=== PATIENT | female | born 1960 | race Caucasian/White ===

== ENCOUNTER → 2024-10-01 | Outpatient (CLI) | payer MEDICARE, MEDICAID, SELFPAY ==
[2024-10-01 12:57] LABS: Collection Type, Urine Clean Catch
[2024-10-01 13:12] LABS: Basophils % (Auto) 0 % (0-2.5); Eosinophils % (Auto) 0 % (0-10); Hematocrit 39.8 % (36.0-46.0); Hemoglobin 13.1 g/dL (12.0-16.0); Immature Granulocytes % (Auto) 1 % (0-0); Immature Granulocytes Auto 0.04 Thou/mm3 (0.00-0.00); Lymphocytes # (Auto) 1.4 Thou/mm3 (1.0-4.8); Lymphocytes % (Auto) 30 % (10-50); Mean Corpuscular HGB Conc 32.9 g/dl (31.0-37.0); Mean Corpuscular Hemoglobin 31.6 pg (25.0-35.0); Mean Corpuscular Volume 96 fL (80-100); Monocytes # (Auto) 1.2 Thou/mm3 (0.0-0.8); Monocytes % (Auto) 25 % (0-12); Neutrophils # (Auto) 2.1 Thou/mm3 (1.8-7.7); Neutrophils % (Auto) 43 % (37-80); Nucleated Red Blood Cell % 0 /100 WBC (0); Platelet Count 217 Thou/mm3 (140-440); Red Blood Count 4.15 Miln/mm3 (4.00-5.20); White Blood Count 4.8 Thou/mm3 (3.6-11.0)
[2024-10-01 13:24] LABS: Glucose Estimated Average 97 mg/dL (80-131)
[2024-10-01 13:27] LABS: Bacteria,Urine 1+; Bilirubin,Urine Negative (Negative); Blood,Urine Negative (Negative); Color,Urine Yellow (Lt Yel-Yel); Glucose, Urine Negative (Negative); Hyaline Casts,Urine < 1 /hpf (0-1); Ketones,Urine Negative (Negative); Leukocyte Esterase,Urine Positive (Negative); Nitrite,Urine Negative (Negative); PH,Urine 5.5 (5.0-7.0); Protein,Urine 1+ (Neg - Trace); RBC,Urine 4 /hpf (0-3); Specific Gravity,Urine 1.036 (1.001-1.035); Squamous Epithelial Cell,Urine 36 /hpf (0-5); WBC,Urine 8 /hpf (0-5)
[2024-10-01 13:30] LABS: Alanine Aminotransferase 35 U/L (10-49); Albumin, Serum 5.2 gm/dL (3.4-4.8); Albumin/Globulin Ratio 2.1 (1.2-2.2); Alkaline Phosphatase 112 U/L (46-116); Anion Gap 8 (7-16); Aspartate Amino Transferase 42 U/L (0-34); BUN/Creatinine Ratio 18 Ratio (12-20); Bilirubin,Total 0.8 mg/dL (0.3-1.2); Blood Urea Nitrogen 18 mg/dL (9-23); Calcium 10.2 mg/dL (8.3-10.6); Calcium (Corrected) 10.2 mg/dL (8.5-10.1); Carbon Dioxide 25.9 mMol/L (20.0-31.0); Cardiac Risk Estimate 2.9 RATIO (3.7-5.6); Chloride 103 mMol/L (98-107); Cholesterol 219 mg/dL (132-200); Globulin 2.5 gm/dL (2.3-3.5); Glucose 103 mg/dL (74-106); HDL Cholesterol 75 mg/dL (40-60); LDL Cholesterol,Calculated 79 mg/dL (0-130); Osmolality,Calculated 275 (275-295); Potassium 4.4 mMol/L (3.4-5.1); Sodium 137 mMol/L (136-145); Thyroid Stimulating Hormone 1.14 uIU/mL (0.55-4.78); Total Protein 7.7 gm/dL (5.7-8.2); Triglycerides 325 mg/dL (30-150); eGFR > 60 See Note
[2024-10-01 13:50] LABS: Clarity,Urine Hazy (Clear/Hazy)
== END | disposition home or self-care (01) ==
PROVIDERS: PCP Student in an Organized Health Care Education/Training Program; Referring Provider Student in an Organized Health Care Education/Training Program; Visit Provider Student in an Organized Health Care Education/Training Program
DX: Z00.00 Encounter for general adult medical examination without abnormal findings (principal); N39.0 Urinary tract infection, site not specified
CPT/HCPCS: 36415; 80053; 80061; 81001; 83036; 84443; 85025; 87086

== ENCOUNTER 2024-11-18 13:25 | Outpatient (AMB) | payer MEDICARE, MEDICAID, SELFPAY ==
[2024-11-18 13:42] VITALS: BP 173/90; PULSE 110; RESP 18; TEMP 36.6; O2SAT 97; BMI 34.0
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
== END 2024-11-18 14:17 | disposition home or self-care (01) ==
LOC: HODAHC 13:25
PROVIDERS: PCP Student in an Organized Health Care Education/Training Program; Referring Provider Student in an Organized Health Care Education/Training Program; Supervising Provider Internal Medicine
DX: N39.0 Urinary tract infection, site not specified (principal); I10 Essential (primary) hypertension; Z86.73 Personal history of transient ischemic attack (TIA), and cerebral infarction without residual deficits
CPT/HCPCS: 99213; G0463

== ENCOUNTER 2025-02-10 13:05 | Outpatient (AMB) | payer MEDICARE, MEDICAID, SELFPAY ==
[2025-02-10 13:32] VITALS: BP 176/78; PULSE 107; RESP 16; TEMP 36.2; O2SAT 98; BMI 33.7
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
== END 2025-02-10 14:21 | disposition home or self-care (01) ==
PROVIDERS: Supervising Provider Internal Medicine
DX: I10 Essential (primary) hypertension (principal); E78.00 Pure hypercholesterolemia, unspecified; Z86.73 Personal history of transient ischemic attack (TIA), and cerebral infarction without residual deficits
CPT/HCPCS: 99213; G0463

== ENCOUNTER → 2025-03-03 | Outpatient (CLI) | payer MEDICARE, MEDICAID, SELFPAY ==
[2025-03-03 11:41] LABS: Anion Gap 10 (7-16); BUN/Creatinine Ratio 19 Ratio (12-20); Blood Urea Nitrogen 17 mg/dL (9-23); Calcium 9.6 mg/dL (8.3-10.6); Chloride 112 mMol/L (98-107); Creatinine (Component) 0.9 mg/dL (0.6-1.3); Glucose 83 mg/dL (74-106); Osmolality,Calculated 285 (275-295); Potassium 4.2 mMol/L (3.4-5.1); Sodium 143 mMol/L (136-145); eGFR > 60 See Note
== END | disposition home or self-care (01) ==
DX: I10 Essential (primary) hypertension (principal)
CPT/HCPCS: 36415; 80048

== ENCOUNTER 2025-03-10 14:12 | Outpatient (AMB) | payer MEDICARE, MEDICAID, SELFPAY ==
[2025-03-10 13:23] VITALS: BP 113/62; PULSE 79; RESP 18; TEMP 36.4; O2SAT 97
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
== END 2025-03-10 15:13 | disposition home or self-care (01) ==
LOC: HODAHC 14:12
PROVIDERS: Supervising Provider Internal Medicine
DX: I10 Essential (primary) hypertension (principal); E78.00 Pure hypercholesterolemia, unspecified; I69.354 Hemiplegia and hemiparesis following cerebral infarction affecting left non-dominant side; R92.323 Mammographic fibroglandular density, bilateral breasts; Z87.891 Personal history of nicotine dependence; Z79.82 Long term (current) use of aspirin
CPT/HCPCS: 99213; G0463

== ENCOUNTER 2025-06-04 10:57 | Outpatient (AMB) | payer MEDICARE, MEDICAID, SELFPAY ==
[2025-06-04 11:11] VITALS: BP 175/71; PULSE 99; RESP 18; TEMP 36.6; O2SAT 98
--- NOTE | 2025-06-04 11:11 | PD.RESCLINIC ---
Vital Signs 06/04/25 11:11 Height 1.63 m Height Method Stated Weight Measurement Method Wheelchair BP 175/71 H Blood Pressure Source Automatic Cuff Blood Pressure Location Right Upper Arm Position Sitting Respiration 18 Pulse 99 Pulse Source Monitor Temp 97.9 F Temp Source Temporal Artery Scan Pulse Oximetry (%) 98 Oxygen Delivery Method Room Air Allergies/Meds Allergies & Medications Allergies No Known Allergies Allergy (Verified 06/04/25 11:12) Medication Reconciliation aspirin 81 mg tablet,delayed release 81 mg PO QDAY PRN cva 30 days #30 tabs 06/05/23 [Rx Confirmed 06/04/25] miscellaneous medical supply (Blood Pressure Cuff) #1 ea 06/05/23 [Rx Confirmed 06/04/25] nitrofurantoin monohydrate/macrocrystals 100 mg capsule (Macrobid) 100 mg PO Q12H #14 caps 11/18/24 [Rx Confirmed 06/04/25] atorvastatin 80 mg tablet 80 mg PO QDAY 90 days #90 tabs 01/26/25 [Rx Confirmed 06/04/25] gabapentin 100 mg capsule 100 mg PO TID PRN nerve pain #90 caps 02/10/25 [Rx Confirmed 06/04/25] losartan 50 mg tablet 50 mg PO QDAY 1 month #30 tabs 04/19/25 [Rx Confirmed 06/04/25] metoprolol succinate 100 mg tablet,extended release 24 hr 100 mg PO QDAY 1 month #30 tabs 06/04/25 [Rx] ondansetron 4 mg disintegrating tablet 4 mg PO Q8H PRN nausea and vomiting #30 tabs 06/04/25 [Rx] MA Intake Visit Data Collection New Patient or Established: Established Patient (seen at [facility] within 3 years) Seen by Clinical Staff ONLY (RN/MA): No Pain Present Currently: No Pain scale:: 0 Pain Scale Used: [place]/Numerical Facilities Locator Required: No PCP or OBGYN visit in last 3 months: No Hx Now: No Do You Feel Safe at Home: Yes Authorities Contacted: N/A Smoking Status Smoking Status: Former smoker Immunization / Flu Flu Vaccine in the Last 12 Months: No Flu Vaccine Exclusion Criteria: No Exclusion Criteria Past Medical History Past Medical History NEUROLOGIC: Positive Cerebrovascular Accident CARDIAC: Positive Hypercholesterolemia and Hypertension; Negative Congestive Heart Failure RESPIRATORY: Negative Chronic Obstructive Pulmonary Disease (COPD) GENITOURINARY: Negative Renal Disease ENDOCRINE: Negative Diabetes Mellitus Type 1 or Diabetes Mellitus Type 2 Social History SMOKING STATUS: Smoking status: Former smoker ALCOHOL FREQUENCY: Alcohol Intake Frequency: holidays/special occasions only HOUSING: Housing: House LIVES WITH: Lives With: Spouse Patient Citlaly Sawyer Social History Living Situation History Housing: House Housing Other:: pt lives with Tobacco History Smoking Status: Former smoker Alcohol History Alcohol Intake Frequency: holidays/special occasions only Substance Use History Substance Use: MARIJUANA Domestic Abuse History Do You Feel Safe at Home: Yes Review of Systems Report any current symptoms Only answer those that you have currently: Past Medical History Past Medical History Have you ever been diagnosed with any of the following: Neurological Problems Cerebrovascular Accident (CVA): Yes Cardiology Problems Hypercholesterolemia: Yes Congestive Heart Failure: No Hypertension: Yes Respiratory Problems Chronic Obstructive Pulmonary Disease (COPD): No Genital/Urinary Problems Renal Disease: No Endocrine Problems Diabetes Mellitus Type 1: No Diabetes Mellitus Type 2: No History of Present Illness HPI Narrative Aimee Manzano is a pleasant 63-year-old female with a past medical history of hypertension, hypercholesterolemia, and 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 During previous visit metoprolol XL increased to 100 mg and losartan increased to 50 mg as BP was 176/78 and was confirmed with manual BP cuff and heart rate was 107. Today, blood pressure is again elevated at 175/71 but brings in a blood pressure log showing readings that average around 110s-130s/60s-70s and thus will continue her current blood pressure regimen. Otherwise she denies any lightheadedness or near syncope. 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 Low-dose CT chest and mammogram were ordered during previous visit on 03/10/2025 but states they were not able to be done. Will reorder imaging and schedule follow-up in another three months after imaging is done. States that she sent in stool sample for Cologuard and will find results for that. 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 BMP after increase showed stable creatinine 0.9, K 4.2. Plan: ? Metoprolol succinate 100 mg daily ? Losartan 50 mg daily (2) CVA, old, hemiparesis: Status: Chronic Assessment & Plan: Patient states that she has made some success regarding her contractures with home exercises. On gabapentin, taking two per day instead of three due to feeling nauseous, dizzy. Plan: ? Continue gabapentin 100 mg twice a day as needed ? Continue aspirin 81 mg daily ? Continue atorvastatin 80 mg ? Referral for PT sent (3) Mammographic fibroglandular density, bilateral breasts: Status: Acute Assessment & Plan: Last mammogram on 02/08/2021 recommended 1 year follow-up given findings of scattered areas of fibroglandular density and multiple bilateral benign calcifications with BI-RADS Category 2, so will order mammogram. Plan: ? Mammogram ordered 03/10 but unable to be done so reordered 06/04 (4) Stopped smoking with greater than 30 pack year history: Status: Acute Assessment & Plan: Endorses [id number]-fdsl smoking history and quit approximately 10 years ago but currently uses 0 nicotine vape, so we will order low-dose CT chest for screening. Plan: ? Low-dose CT lung screening ordered 03/10 but unable to be done so reordered 06/04 (5) Colon cancer screening: Status: Acute Assessment & Plan: Patient has not yet had a colonoscopy but agrees to screening. Stool sample sent per patient and will need to find results. Plan: ? Cologuard order placed 03/10, will need to follow-up results Orders: Orders CT lung low-dose screening wo 06/04/25 Z87.891 - Personal history of nicotine dependence [facility] CAD screening BI 06/04/25 R92.323 - Mammographic fibroglandular density, bilateral breasts Referrals Physical Therapy - Referral I69.398 - Other sequelae of cerebral infarction, R25.2 - Cramp and spasm Additional Assessment Attending note: I, Juan Hamilton MD, attest that I was physically present for the vazquez portions of the service and evaluated the patient with the resident and I reviewed and discussed the case with the resident and agree with the resident's findings and plans of care as documented above. Juan Hamilton MD Physician Billing Established Patient Established Patient: E/M Level 3-CPT 65389 Office Procedures [facility] Level of Care Nursing/Assessment Patient Status: Established Patient Nursing Assessment/Reassessment: Medication Reconciliation, Update PMH in EMR and Vital Signs Coordination of Care: Complex Care and Chronic Disease 1-5, Consent,records obtained, informed consent, Education Simp Pt/Fam and Staff clarify orders Established Patient Charge Established Patient Point Assignment: 85 Established Patient Point Charge: EP Level 3 (80-115)
== END 2025-06-04 12:05 | disposition home or self-care (01) ==
LOC: HODAHC 10:57
PROVIDERS: Supervising Provider Internal Medicine
DX: I69.354 Hemiplegia and hemiparesis following cerebral infarction affecting left non-dominant side (principal); I10 Essential (primary) hypertension; E78.00 Pure hypercholesterolemia, unspecified; F17.290 Nicotine dependence, other tobacco product, uncomplicated; R92.323 Mammographic fibroglandular density, bilateral breasts
CPT/HCPCS: 99213; G0463

== ENCOUNTER 2025-07-06 09:13 | Inpatient (IN) | payer MEDICARE, MEDICAID, SELFPAY ==
[2025-07-06] VITALS (12 sets, daily range): BP systolic 148–182; BP diastolic 80–95; PULSE 102–133; RESP 12–98; TEMP 37.1; O2SAT 97–98
--- NOTE | 2025-07-06 09:21 | EKG_ITS ---
[facility] Test Date: 2025-07-06 Pat Name: BISHNU JOLLY Department: Room: - Gender: Female Craft Artist: : [id number] Requested By: Nikky Stock Order Number: [id number] Reading MD: Nikky Stock Measurements Intervals [place] Rate: 122 P: 47 OK: 132 QRS: 5 QRSD: 75 T: 30 QT: 309 QTc: 442 Interpretive Statements SINUS TACHYCARDIA ABNORMAL RHYTHM ECG Compared to ECG 02/27/2023 04:46:30 Myocardial infarct finding no longer present /store/S0/[id number]
--- NOTE | 2025-07-06 09:22 | EDNOTE_ITS ---
ED Chest Pain RME/HPI General Chief Complaint: Chest Pain Stated Complaint: CHEST PAIN Time Seen by Provider: 07/06/25 09:21 Source: patient and family Arrival date/time: 07/06/25 09:13 Mode of arrival: wheelchair Limitations: no limitations RME / HPI RME / HPI narrative: Patient is a 64-year-old female seen emerged primary concerns for chest pain after having received the news that her had . Her is a patient that came to the emergency department earlier today in cardiac arrest, unfortunately the patient . I was sharing the news with the patient and then started having chest pain feeling unwell. I advised her to get checked in so that I can evaluate her. Related Data Home Medications ?Medication ?Instructions ?Recorded ?Confirmed omeprazole 20 mg tablet,delayed 20 mg PO QDAY 07/06/25 07/16/25 release Previous Rx's ?Medication ?Instructions ?Recorded miscellaneous medical supply #1 ea 06/05/23 (Blood Pressure Cuff) atorvastatin 80 mg tablet 80 mg PO QDAY 90 days #90 ta bs 01/26/25 losartan 50 mg tablet 50 mg PO QDAY 1 month #30 ta bs 06/17/25 aspirin 81 mg tablet,delayed 81 mg PO QDAY cva 30 days #30 tabs 07/08/25 release carvedilol 12.5 mg tablet 12.5 mg PO BIDWM 30 days #60 tabs 07/08/25 gabapentin 100 mg capsule 100 mg PO TID PRN neuropathi c pain 07/08/25 30 days #90 caps ondansetron 4 mg disintegrating 4 mg PO Q8H PRN nausea and 07/20/25 tablet vomiting #30 tabs Allergies Allergy/AdvReac Type Severity Reaction Status Date / Time No Known Allergies Allergy Verified 07/16/25 11:19 Review of Systems Review of Systems Systems Reviewed: All systems reviewed, normal except as documented Past Medical History Past Medical History NEUROLOGIC: Positive Cerebrovascular Accident CARDIAC: Positive Hypercholesterolemia and Hypertension RESPIRATORY: Negative Chronic Obstructive Pulmonary Disease (COPD) GENITOURINARY: Negative Renal Disease ENDOCRINE: Negative Diabetes Mellitus Type 1 or Diabetes Mellitus Type 2 Social History SMOKING STATUS: Former smoker ED Exam General Limitations: Present no limitations General appearance: Present alert and in no apparent distress Head Head exam: Present atraumatic Eye Eye exam: Present normal appearance ENT ENT exam: Present normal exam Neck Neck exam: Present normal inspection Chest Chest inspection: Present normal inspection Respiratory Respiratory exam: Present normal lung sounds bilaterally; Absent respiratory distress Cardiovascular Cardiovascular exam: Present normal rhythm and tachycardia Abdominal Exam Abdominal exam: Present soft; Absent distention, tenderness, guarding or rebound Extremities Exam Extremities exam: Present normal inspection Back Exam Back exam: Present normal inspection Neurological Exam Neurological exam: Present alert, oriented X3 and other (ambulating at her baseline with walker, baseline unilateral weakness from prior stroke ) Skin Skin exam: Present warm and dry Course Quality Measures none Orders Category Date Time Status EKG (ED ONLY) *Do not use* NOW Care 07/06/25 09:21 Completed CA echo doppler complete Stat Exams 07/06/25 13:[address] head/brain wo con Stat Exams 07/06/25 16:16 Completed CXR [XR chest 1V] Stat Exams 07/06/25 09:21 Completed EKG (ED Only) Stat Exams 07/06/25 09:21 Draft CBC Stat Lab 07/06/25 09:54 Completed CMP [Comprehensive Metabolic Panel] Stat Lab 07/06/25 09:54 Completed Troponin I Stat Lab 07/06/25 09:54 Completed Troponin I Stat Lab 07/06/25 15:34 Completed Acetaminophen Tab [Tylenol Tab] Med 07/06/25 13:43 Discontinued 650 mg PO X1 ONE Aspirin Chew Med 07/06/25 10:11 Discontinued 81 mg PO X1 ONE Labetalol IV [Trandate IV] Med 07/06/25 16:15 Discontinued 10 mg IVP X1 ONE Losartan [Cozaar] Med 07/06/25 13:43 Discontinued 50 mg PO X1 ONE Morphine Inj Med 07/06/25 15:53 Discontinued 2 mg IVP X1 ONE Vital Signs Vital signs: Vital Signs Temperature 98.7 F 07/06/25 10:06 Pulse Rate 130 H 07/06/25 10:06 Respiratory Rate 20 07/06/25 10:06 Blood Pressure 182/89 H 07/06/25 10:06 Pulse Oximetry (%) 98 07/06/25 10:06 Oxygen Delivery Method Room Air 07/06/25 10:06 Pulse ox is 98% on room air which is adequate. Chest Pain MDM Narrative MDM Narrative:: Patient is a 64-year-old female seen emerged from concerns for chest pain. Vital signs and exam as listed. Concern for ACS arrhythmia electrolyte abnormality among others. Ordered labs EKG chest x-ray. 1328: I spoke with apartment leasing manager Dr. Trujillo. Discussed patients PMHx, HPI, ED course, exam findings, labs, and radiology results. States he will come evaluate the patient. 1340: Information Security Specialist Dr. Trujillo evaluated the patient and recommends repeating troponin. 1630: Resident Dr. Hagen working with apartment leasing manager Dr. Trujillo made aware of delta trop results and evaluated patient in the ED. Concern for takasubo's cardiomyopathy. Recommends admission. 1640: I spoke with hospitalist team C regarding admission. Patient data External records reviewed:: [facility] previous records (I reviewed admission from 02/26/2023 through 03/01/2023 ) Clinical information provided by:: patient Social determinants that could affect healthcare access:: none Patient has the following chronic illnesses:: CVA, hypertension, hyperlipidemia How is presenting disease/condition affected by chronic disease/condition?: exacerbated by Evaluation data The following diagnostics were reviewed and interpreted by me:: lab results, radiology exam(s) and EKG tracing(s) Lab and/or radiology exams considered but not ordered:: None Interpretation Summary: Ordering Physician: Nikky Carey MD Date of Service: 07/06/25 Procedure(s): XR chest 1V Accession Number(s): [id number] cc: Michael Mancia MD; Nikky Carey MD~ Examination: AP chest single view TECHNIQUE: AP upright portable chest single view. Date and time: July 06, 2025, 0931 hours, comparison February 26, 2023. INDICATIONS: Chest pain today. FINDINGS: Mild atelectasis left lower lobe. Normal heart size. No lobar pneumonia or pulmonary edema. IMPRESSION: No lobar pneumonia or pulmonary edema. Dictated By: Michael Mancia MD Signed By: <Electronically signed by Michael Mancia MD in OV> 07/06/25 1000 Medications / Prescriptions Medications or Prescriptions considered but not ordered:: None Medication administrations:: Medication Administration History Discontinued Medications Acetaminophen (Acetaminophen 325 Mg Tablet) 650 mg PO X1 ONE Stop: 07/06/25 13:44 Last Admin: 07/06/25 14:16 Dose: 650 mg Documented By: VL Acetaminophen (Acetaminophen 325 Mg Tablet) 650 mg PO Q6H PRN PRN Reason: Fever >101.5 Stop: 08/05/25 17:28 Last Admin: 07/07/25 21:40 Dose: 650 mg Documented By: Admin: 07/06/25 22:54 Dose: 650 mg Documented By: IG Acetaminophen (Acetaminophen 325 Mg Tablet) 650 mg PO X1 ONE Stop: 07/08/25 13:53 Last Admin: 07/08/25 13:55 Dose: 650 mg Documented By: CU Acetaminophen (Acetaminophen 325 Mg Tablet) Confirm Administered Dose 650 mg .ROUTE .STK-MED ONE Stop: 07/08/25 13:55 Last Admin: 07/08/25 16:42 Dose: Not Given Documented By: CU Non-Admin Reason: Override Medication Adenosine (Adenosine Inj 3 Mg/Ml Vial) Confirm Administered Dose 30 mg .ROUTE .STK-MED ONE Stop: 07/08/25 12:03 Last Admin: 07/08/25 12:41 Dose: Not Given Documented By: EG Non-Admin Reason: Other, see note Amiodarone HCl (Amiodarone Inj 50 Mg/Ml Vial 9 Ml) Confirm Administered Dose 900 mg IV .STK-MED ONE Stop: 07/08/25 12:03 Last Admin: 07/08/25 12:41 Dose: Not Given Documented By: EG Non-Admin Reason: Other, see note Aspirin (Aspirin 81 Mg Chew) 81 mg PO X1 ONE Stop: 07/06/25 10:12 Last Admin: 07/06/25 12:22 Dose: 81 mg Documented By: LP Aspirin (Aspirin Ec 81 Mg Tabec) 81 mg PO QDAY PRN PRN Reason: cva Stop: 08/06/25 17:38 Aspirin (Aspirin Ec 81 Mg Tabec) 81 mg PO QDAY COUNTS INCLUDE 234 BEDS AT THE [facility] Stop: 08/06/25 08:59 Last Admin: 07/08/25 08:09 Dose: 81 mg Documented By: Admin: 07/07/25 08:42 Dose: 81 mg Documented By: SC Aspirin (Aspirin 325 Mg Tablet) 325 mg PO X1 ONE Stop: 07/08/25 09:09 Last Admin: 07/08/25 09:26 Dose: 325 mg Documented By: NASIR Atorvastatin Calcium (Atorvastatin Calcium 20 Mg Tablet) 80 mg PO QDAY COUNTS INCLUDE 234 BEDS AT THE [facility] Stop: 08/05/25 08:59 Last Admin: 07/08/25 08:09 Dose: 80 mg Documented By: Admin: 07/07/25 08:42 Dose: 80 mg Documented By: SC Admin: 07/06/25 18:16 Dose: 80 mg Documented By: VL Atropine Sulfate (Atropine Sulf Inj 1 Mg/Ml Vial) Confirm Administered Dose 1 mg .ROUTE .STK-MED ONE Stop: 07/08/25 12:02 Last Admin: 07/08/25 12:41 Dose: Not Given Documented By: EG Non-Admin Reason: Other, see note Baclofen (Baclofen 10 Mg Tablet) 20 mg PO TID NAZANIN Stop: 08/06/25 09:14 Carvedilol (Carvedilol 12.5 Mg Tablet) 12.5 mg PO BIDWM NAZANIN Stop: 08/08/25 07:59 Nitroglycerin 50 mg/ Sodium (Chloride 240 ml) 0 mg INTRA-YAN X1 ONE Stop: 07/08/25 09:10 Last Admin: 07/08/25 09:09 Dose: Not Given Documented By: EG Non-Admin Reason: manager cath lab use only Docusate Sodium (Docusate Sod 100 Mg Capsule) 100 mg PO QDAY PRN; Protocol PRN Reason: CONSTIPATION Stop: 08/05/25 17:28 Epinephrine HCl (Epinephrine Inj 0.1 Mg/Ml Syringe 10ml) Confirm Administered Dose 1 mg .ROUTE .STK-MED ONE Stop: 07/08/25 12:04 Last Admin: 07/08/25 12:40 Dose: Not Given Documented By: EG Non-Admin Reason: Other, see note Fentanyl Citrate (Fentanyl Cit Inj 50 Mcg/Ml Amp 2ml) Confirm Administered Dose 100 mcg .ROUTE .STK-MED ONE Stop: 07/08/25 12:02 Last Admin: 07/08/25 12:41 Dose: Not Given Documented By: EG Non-Admin Reason: Other, see note Flumazenil (Flumazenil Inj 0.1 Mg/Ml Vial 10 Ml) Confirm Administered Dose 1 mg .ROUTE .STK-MED ONE Stop: 07/08/25 12:03 Last Admin: 07/08/25 12:40 Dose: Not Given Documented By: EG Non-Admin Reason: Other, see note Gabapentin (Gabapentin 100 Mg Capsule) 100 mg PO TID PRN PRN Reason: nerve pain Stop: 08/05/25 17:38 Gabapentin (Gabapentin 100 Mg Capsule) 100 mg PO TID COUNTS INCLUDE 234 BEDS AT THE [facility] Stop: 08/06/25 09:14 Last Admin: 07/08/25 17:42 Dose: Not Given Documented By: NASIR Non-Admin Reason: at manager cath lab Admin: 07/08/25 05:54 Dose: 100 mg Documented By: Admin: 07/07/25 21:42 Dose: 100 mg Documented By: Admin: 07/07/25 14:37 Dose: 100 mg Documented By: SC Admin: 07/07/25 09:22 Dose: 100 mg Documented By: SC Heparin Sodium (Porcine) (Heparin Sod Inj 5000 Unit/Ml Vial) 5,000 unit SC Q12HR NAZANIN Stop: 07/20/25 20:59 Heparin Sodium (Porcine) (Heparin Sod Inj 5000 Unit/Ml Vial) 4,000 unit IV X1 ONE; Protocol Stop: 07/06/25 22:46 Last Admin: 07/06/25 22:54 Dose: 4,000 unit Documented By: IG Co-signed By: KIN Heparin Sodium (Porcine) (Heparin Sod Inj 5000 Unit/Ml Vial) 2,000 unit IV X1 ONE Stop: 07/07/25 08:55 Last Admin: 07/07/25 09:23 Dose: 2,000 unit Documented By: SC Co-signed By: TRUDY Heparin Sodium (Porcine) (Heparin Sod Inj 5000 Unit/Ml Vial) 4,000 unit IVP X1 ONE Stop: 07/07/25 16:11 Last Admin: 07/07/25 16:35 Dose: 4,000 unit Documented By: SC Co-signed By: TRUDY Comments: ptt 34.9 Heparin Sodium (Porcine) (Heparin Sod Inj 1000 Unit/Ml Vial 10 Ml) Confirm Administered Dose 20,000 unit .ROUTE .STK-MED ONE Stop: 07/08/25 12:04 Last Admin: 07/08/25 12:40 Dose: Not Given Documented By: EG Non-Admin Reason: Other, see note Heparin Sodium/Dextrose (Heparin In D5w Ivpb) 25,000 unit in 250 mls @ 9.957 mls/hr IV .Q24H NAZANIN; Protocol Stop: 07/20/25 22:49 Last Titration: 07/08/25 11:57 Dose: 0 units/kg/hr, 0 mls/hr Documented By: NASIR(2) Co-signed By: BEN Titration: 07/08/25 06:56 Dose: 14.2 units/kg/hr, 12.624 mls/hr Documented By: JRR Co-signed By: IG Titration: 07/08/25 00:28 Dose: 14.2 units/kg/hr, 12.624 mls/hr Documented By: IG Co-signed By: WB Titration: 07/07/25 23:25 Dose: 0 units/kg/hr, 0 mls/hr Documented By: IG Co-signed By: WB Admin: 07/07/25 21:46 Dose: 17.2 units/kg/hr, 15.291 mls/hr Documented By: IG Co-signed By: WB Titration: 07/07/25 20:32 Dose: Infused Documented By: IG Co-signed By: WB Titration: 07/07/25 16:36 Dose: 17.2 units/kg/hr, 15.291 mls/hr Documented By: SC Co-signed By: WG Titration: 07/07/25 08:56 Dose: 13.2 units/kg/hr, 11.735 mls/hr Documented By: SC Co-signed By: DA Admin: 07/06/25 22:53 Dose: 11.2 units/kg/hr, 9.957 mls/hr Documented By: IG Co-signed By: AM Magnesium Sulfate/Dextrose (Magnesium Sulfate Ivpb) 1 gm in 100 mls @ 100 mls/hr IV X1 ONE Stop: 07/08/25 08:53 Last Admin: 07/08/25 08:48 Dose: 100 mls/hr Documented By: NASIR Sodium Chloride (Ns 0.45%) 500 mls @ 150 mls/hr IV .Q3H20M ONE Stop: 07/08/25 16:21 Last Infusion: 07/08/25 16:05 Dose: Infused Documented By: Admin: 07/08/25 13:12 Dose: 150 mls/hr Documented By: CU Labetalol HCl (Labetalol Inj 5 Mg/Ml Vial 20 Ml) 10 mg IVP X1 ONE Stop: 07/06/25 16:16 Last Admin: 07/06/25 16:19 Dose: 10 mg Documented By: VL Lidocaine HCl (Lidocaine Inj Pf 1% 30 Ml Vial) Confirm Administered Dose 30 ml .ROUTE .STK-MED ONE Stop: 07/08/25 12:04 Last Admin: 07/08/25 12:40 Dose: Not Given Documented By: EG Non-Admin Reason: Other, see note Losartan Potassium (Losartan Potassium 25 Mg Tablet) 50 mg PO X1 ONE Stop: 07/06/25 13:44 Last Admin: 07/06/25 14:16 Dose: 50 mg Documented By: VL Losartan Potassium (Losartan Potassium 25 Mg Tablet) 50 mg PO QDAY COUNTS INCLUDE 234 BEDS AT THE [facility] Stop: 08/06/25 08:59 Losartan Potassium (Losartan Potassium 25 Mg Tablet) 50 mg PO QDAY COUNTS INCLUDE 234 BEDS AT THE [facility] Stop: 08/05/25 19:54 Last Admin: 07/08/25 08:09 Dose: 50 mg Documented By: Admin: 07/07/25 08:42 Dose: 50 mg Documented By: SC Admin: 07/06/25 20:12 Dose: Not Given Documented By: EF Non-Admin Reason: hold per md Melatonin (Melatonin 3 Mg Tablet) 3 mg PO HS COUNTS INCLUDE 234 BEDS AT THE [facility] Stop: 08/06/25 20:59 Last Admin: 07/07/25 21:41 Dose: 3 mg Documented By: IG Metoprolol Succinate (Metoprolol Succinate Xl 25 Mg Tabcr) 100 mg PO QDAY COUNTS INCLUDE 234 BEDS AT THE [facility] Stop: 08/05/25 17:44 Last Admin: 07/08/25 08:10 Dose: 100 mg Documented By: Admin: 07/07/25 08:41 Dose: 100 mg Documented By: SC Admin: 07/06/25 17:59 Dose: 100 mg Documented By: VL Metoprolol Tartrate (Metoprolol Tartrate Inj 1 Mg/Ml Amp 5 Ml) Confirm Administered Dose 5 mg .ROUTE .STK-MED ONE Stop: 07/08/25 12:03 Last Admin: 07/08/25 12:40 Dose: Not Given Documented By: EG Non-Admin Reason: Other, see note Midazolam HCl (Midazolam Inj 1 Mg/Ml Vial 2 Ml) Confirm Administered Dose 2 mg .ROUTE .STK-MED ONE Stop: 07/08/25 12:02 Last Admin: 07/08/25 12:41 Dose: Not Given Documented By: EG Non-Admin Reason: Other, see note Morphine Sulfate (Morphine Sulf Inj 10 Mg/Ml Vial) 2 mg IVP X1 ONE Stop: 07/06/25 15:54 Last Admin: 07/06/25 16:05 Dose: 2 mg Documented By: VL Naloxone HCl (Naloxone Inj 0.4 Mg/Ml Vial) Confirm Administered Dose 1.2 mg .ROUTE .STK-MED ONE Stop: 07/08/25 12:03 Last Admin: 07/08/25 12:40 Dose: Not Given Documented By: EG Non-Admin Reason: Other, see note Ondansetron HCl (Ondansetron Inj 2 Mg/Ml Inj 2 Ml) 4 mg IVP Q6H PRN; Protocol PRN Reason: NAUSEA OR VOMITING Stop: 08/05/25 17:28 Last Admin: 07/07/25 03:30 Dose: 4 mg Documented By: Admin: 07/06/25 20:31 Dose: 4 mg Documented By: EF Pantoprazole Sodium (Pantoprazole Inj 40 Mg Vial) 40 mg IVP QDAY NAZANIN Stop: 08/06/25 08:59 Last Admin: 07/07/25 08:41 Dose: 40 mg Documented By: SC Pantoprazole Sodium (Pantoprazole Inj 40 Mg Vial) 40 mg IVP X1 ONE Stop: 07/06/25 20:39 Last Admin: 07/06/25 20:57 Dose: 40 mg Documented By: EF Pantoprazole Sodium (Pantoprazole 40 Mg Tablet) 40 mg PO QDAY NAZANIN; Protocol Stop: 08/07/25 08:59 Last Admin: 07/08/25 08:08 Dose: 40 mg Documented By: JRR Phenylephrine HCl (Phenylephrine Inj In Ns 100 Mcg/Ml 10 Ml Syringe) Confirm Administered Dose 1,000 mcg .ROUTE .STK-MED ONE Stop: 07/08/25 12:04 Last Admin: 07/08/25 12:40 Dose: Not Given Documented By: EG Non-Admin Reason: Other, see note See above Consultations Consultation(s) initiated? (list below): Yes Consultation #1 (Physician, Specialty, Details): See MDM Diagnosis Most likely diagnosis given after review of the tests above:: Elevated troponin Chest pain Hypertensive emergency Admission Indicated Admission indicated?: indicated Admission Request Was there a request for admission?: Yes Admission Attestation Admission request attestation: Discussed case with Hospitalist service regarding admission. Discussed patients ED course, exam findings, labs, and radiology results. The Hospitalist [agrees] to accept the patient for admission. Disposition Plan Disposition Plan: Admit Critical Care Time Critical Care Time Critical Care Time: Yes Total Critical Care Time (min.): 60 Attestation: The high probability of sudden, clinically significant deterioration in the patient's condition required the highest level of my preparedness to intervene urgently. The services I provided to this patient were to treat and/or prevent clinically significant deterioration. Services included the following: chart data review, reviewing nursing notes and/or old charts, documentation time, human capital consultant collaboration regarding findings and treatment options, medication orders and management, direct patient care, vital sign assessments and ordering, interpreting and reviewing diagnostic studies and lab tests. Aggregate critical care time includes only time during which I was engaged in work directly related to the patient's care, as described above, whether at bedside or elsewhere in the Emergency Department. It did not include time spent performing other reported procedures or the services of residents, students, nurses or physician assistants. Discharge Plan Plan Patient Disposition: Admit Acute Care w/in Hospital Patient condition on transfer: Stable Problem List Clinical Impression: Elevated troponin, Chest pain, Hypertensive emergency Patient/Caregiver Discharge Instructions Discharge Activity: activity as tolerated Other Activity Instructions:: resume gabapentin 100 mg three times a day as needed per
[2025-07-06 10:40] LABS: Basophils # (Auto) 0.0 Thou/mm3 (0.0-0.2); Basophils % (Auto) 0 % (0-2.5); Eosinophils # (Auto) 0.1 Thou/mm3 (0.0-0.5); Eosinophils % (Auto) 1 % (0-10); Hematocrit 35.2 % (36.0-46.0); Hemoglobin 11.8 g/dL (12.0-16.0); Immature Granulocytes Auto 0.19 Thou/mm3 (0.00-0.00); Lymphocytes # (Auto) 1.7 Thou/mm3 (1.0-4.8); Lymphocytes % (Auto) 13 % (10-50); Mean Corpuscular HGB Conc 33.5 g/dl (31.0-37.0); Mean Corpuscular Hemoglobin 31.9 pg (25.0-35.0); Mean Corpuscular Volume 95 fL (80-100); Monocytes # (Auto) 2.1 Thou/mm3 (0.0-0.8); Monocytes % (Auto) 16 % (0-12); Neutrophils # (Auto) 9.3 Thou/mm3 (1.8-7.7); Neutrophils % (Auto) 69 % (37-80); Nucleated Red Blood Cell # 0.00 Thou/mm3 (0.00-0.00); Nucleated Red Blood Cell % 0 /100 WBC (0); Platelet Count 264 Thou/mm3 (140-440); RDW Standard Deviation 50.1 fL (36.4-46.3); Red Blood Count 3.70 Miln/mm3 (4.00-5.20); White Blood Count 13.4 Thou/mm3 (3.6-11.0)
[2025-07-06 11:05] LABS: Alanine Aminotransferase 35 U/L (10-49); Albumin, Serum 5.1 gm/dL (3.4-4.8); Albumin/Globulin Ratio 1.9 (1.2-2.2); Alkaline Phosphatase 158 U/L (46-116); Anion Gap 16 (7-16); Aspartate Amino Transferase 50 U/L (0-34); BUN/Creatinine Ratio 18 Ratio (12-20); Bilirubin,Total 0.6 mg/dL (0.3-1.2); Blood Urea Nitrogen 24 mg/dL (9-23); Calcium 10.4 mg/dL (8.3-10.6); Calcium (Corrected) 10.4 mg/dL (8.5-10.1); Carbon Dioxide 20.3 mMol/L (20.0-31.0); Chloride 109 mMol/L (98-107); Creatinine (Component) 1.3 mg/dL (0.6-1.3); Globulin 2.7 gm/dL (2.3-3.5); Glucose 112 mg/dL (74-106); Osmolality,Calculated 293 (275-295); Potassium 4.2 mMol/L (3.4-5.1); Sodium 145 mMol/L (136-145); Total Protein 7.8 gm/dL (5.7-8.2); eGFR 46 See Note
[2025-07-06 11:09] LABS: Troponin I 0.092 ng/mL (0.0-0.045)
--- NOTE | 2025-07-06 11:12 | PC.NURSE ---
CALL FROM [facility] W/ PT'S TROP 0.092. INFORMED.
[2025-07-06] MEDS: ASPIRIN 81 MG CHEW PO (12:22)
--- NOTE | 2025-07-06 13:28 | ECHO_ITS ---
Transthoracic Echo Report Ht (in): 64 Wt (lb): 198 Exam Location: Echo Lab Status: Inpatient Senior Marketing Specialist: Loli Riley Indications: Procedure Performed: BP: 122 / 72 HR: 72 Technical Quality: Technically difficult study MEASUREMENTS (Male / Female) Normal Values 2D ECHO LV Diastolic Diameter PLAX 3.9 cm 4.2 - 5.9 / 3.9 - 5.3 cm LV Systolic Diameter PLAX 3.3 cm IVS Diastolic Thickness 1.0 cm 0.6 - 1.0 / 0.6 - 0.9 cm LVPW Diastolic Thickness 1.1 cm 0.6 - 1.0 / 0.6 - 0.9 cm LV Relative Wall Thickness 0.5 LVOT Diameter 1.6 cm DOPPLER AV Peak Velocity 121.0 cm/s AV Peak Gradient 5.9 mmHg AV Mean Gradient 3.0 mmHg AV Velocity Time Integral 29.1 cm AI Peak Velocity 137.0 cm/s AI Peak Gradient 7.5 mmHg AI Pressure Half Time 2508.0 ms LVOT Peak Velocity 65.8 cm/s LVOT Peak Gradient 1.7 mmHg LVOT Velocity Time Integral 17.0 cm LVOT Cardiac Index 1200.0 cm?/min?m? AV Area Cont Eq vti 1.2 cm? AV Area Cont Eq pk 1.1 cm? MV Area PHT 3.9 cm? Mitral E Point Velocity 63.5 cm/s Mitral A Point Velocity 102.0 cm/s Mitral E to A Ratio 0.6 LV E' Lateral Velocity 6.6 cm/s Mitral E to LV E' Lateral Ratio 9.6 LV E' Septal Velocity 6.4 cm/s Mitral E to LV E' Septal Ratio 9.9 PV Peak Velocity 100.0 cm/s PV Peak Gradient 4.0 mmHg FINDINGS Left Ventricle Normal left ventricular size, wall thickness, systolic function with no obvious regional wall motion abnormalities. The ejection fraction is visually estimated at 55%. There is grade I diastolic dysfunction of the left ventricle (impaired relaxation pattern). Right Ventricle The right ventricle is normal in size and systolic function. Left Atrium The left atrium is normal by two-dimensional, color flow and Doppler imaging with no structural abnormalities, no thrombus formation present. Right Atrium The right atrium is normal by two-dimensional imaging, color flow and Doppler imaging with no structural abnormalities, no thrombus formation present. Atrial Septum The interatrial septum appears normal with no evidence of a shunt. Aorta The aorta is normal by two-dimensional, color flow and Doppler interrogation. Mitral Valve The mitral valve is normal by two-dimensional, color flow and Doppler interrogation. There is no significant mitral valve regurgitation, stenosis or prolapse. Aortic Valve The aortic valve is trileaflet and normal by two-dimensional, color flow and Doppler interrogation. Mild aortic valve regurgitation. Tricuspid Valve The tricuspid valve is normal by two-dimensional, color flow and Doppler interrogation. There is trace tricuspid valve regurgitation. Pulmonic Valve The pulmonic valve is not well visualized. There is no significant pulmonic valve regurgitation. Vessels The pulmonary artery appears normal. The inferior vena cava pulmonary and hepatic veins appear normal. Pericardium The pericardium is normal by two-dimensional imaging. There is no significant pericardial effusion. CONCLUSIONS Indication: NSTEMI Poor quality images. Normal LV size and function. Estimated EF at 55-60%. There is grade I diastolic dysfunction The RV is normal in size and systolic function. RVSP not measured. Trace mitral and trace tricuspid regurgitation noted. No pericardial effusion. Christiano Trujillo (Electronically Signed) Final Date: 09 July 2025 08:20
[2025-07-06] MEDS: ACETAMINOPHEN 325 MG TABLET 650 MG PO ×2 (14:16→22:54)
[2025-07-06] MEDS: LOSARTAN POTASSIUM 25 MG TABLET 50 MG PO (14:16)
[2025-07-06] MEDS: MORPHINE SULF INJ 10 MG/ML VIAL 2 MG IVP (16:05)
[2025-07-06 16:08] LABS: Troponin I 0.293 ng/mL (0.0-0.045)
--- NOTE | 2025-07-06 16:16 | XR_ITS ---
Examination: CT brain head without contrast. 2-D sagittal coronal reconstructions Date and time of exam:July 06, 2025, 1845 hours INDICATIONS: Hypertension head pain today, history CVA 2018 CTDI: vol (mGy):50.8 DLP: (mGycm):1074 Technique: Multiple CT axial sections of the brain have been obtained, 5 mm slice thickness. Contrast has not been administered. 2-D sagittal, coronal reconstructions have been obtained Low dose protocols were performed. One or more of the following dose reduction techniques were used; automated exposure control, adjustment of the mA and/or KV according to patient size, use of iterative reconstruction technique. Findings: Large old infarct right middle cerebral artery distribution with ipsilateral ventricular dilatation No acute hemorrhage and no mass effect Cranial vault intact IMPRESSION: Negative for acute hemorrhage mass effect or midline shift
[2025-07-06] MEDS: LABETALOL INJ 5 MG/ML VIAL 20 ML 10 MG IVP (16:19)
--- NOTE | 2025-07-06 16:42 | PD.RESCONSUL ---
HPI Data of Consult Patient: new to practice Consult date: 07/06/25 Primary Care Provider: Physician No Primary/Family Consult Narrative History of present illness: Aimee Manzano is a 64F with reported PMHx of hypertension, hypercholesterolemia, stroke with left-sided deficits, GERD, and UTI who was called in by the ED physician after feeling unwell with chest pain upon getting the news about her 's demise earlier in the day. She reports high BP with readings as high as 176/90. She takes losartan, metoprolol also for hypertension, and low-dose aspirin. She denies lightheadedness, or dizziness. Pt had a storke while a sleep which left her with left-sided deficits, with a fully contracted left arm, elbow, hand and fingers. She uses a cane and foot brace for mobility at home. Her left ankle is weak and her foot drops, so her foot has propensity to roll while she is on her feet and walking. She uses a boot brace to stablize her left lower leg. She had extreme burning sensation with urination, diagnosed with UTI 1wk ago. The pain has now resolved. No longer does she have her morning chest pain either. Allergies: dust and pollen PMHx: as above PSHx: oral surgeries for lost teeth from smoking. FHx: HTN in both parents. Grandmother from Alzheimer's at 104. SHx: Pt had smoked for some 30y, .25PPD, but has been tobacco free for 10-15y. She does not drink coffee. Pt reports smoking marijuana, the leaves of which she grows. She smokes to help with night's sleep. She reports PTSD since she first had stroke while sleep, and feels very fearful when lying that she would have a second episode. Patient drinks sips of Vodka couple times weekly. ED Course: BP 173/91, pulse 122, Temperature 98.7, pulse 130, respiratory rate 20, blood pressure 182/89, oxygen 98% on room air. Additional labs, WBC 13.4, hemoglobin 11.8, MCV 95 potassium 4.2 carbon dioxide 20.3 BUN 24 creatinine 1.3 glucose 112 initial troponins were elevated at 0.092, which trended up to 0.293 6h later. Patient completed chest x-ray showing mild atelectasis of left lower lobe. Normal heart size. No lobar pneumonia or pulmonary edema. cc:: cc: Exam Vital Signs Temp Pulse Resp BP Pulse Ox O2 Del Method 98.7 F 130 H 20 153/80 H 98 Room Air 07/06/25 10:06 07/06/25 16:19 07/06/25 10:06 07/06/25 16:19 07/06/25 10:06 07/06/25 10:06 Narrative Exam General: Alert and oriented x3, No apparent distress. Skin: Intact, Warm, no rashes. HEENT: Normocephalic, Atraumatic. Normal neck range of motion, Supple. Trachea midline. Respiratory: Lungs are clear to auscultation, Breath sounds are equal bilaterally with equal chest expansion. Cardiovascular: tachycardic, sinus rhythym, normal S1, S2, No murmurs. Distal pulses 2+ Abdomen: Abdomen soft, non-distended, without erythema, or lesions. Normotensive bowel sounds x4. Percussion tympanic. Palpation nontender in all four quadrants. No organomagely. No guarding or rebound present. Musculoskeletal/Extremities: No erythema, swelling, tenderness of any joints. No edema of BLE. DP pulses +2/3 b/l. Full active ROM of all four extremities. Neurologic: NEURO: Oriented x3, cranial nerves II to XII grossly intact. Rt sided hemiplagia with hypercontracted and immobile Right upper extremity, Right foot drop and immobile ankle in a boot. Psych: Thoughts linear and responses appropriate. Results Labs 07/07/25 05:06 07/07/25 05:06 Labs: Short CBC 07/06/25 Range/Units 09:54 WBC 13.4 H (3.6-11.0) Thou/mm3 Hgb 11.8 L (12.0-16.0) g/dL Hct 35.2 L (36.0-46.0) % Plt Count 264 (140-440) Thou/mm3 BMP 07/06/25 09:54 Sodium 145 Potassium 4.2 Chloride 109 H Carbon Dioxide 20.3 BUN 24 H Creatinine 1.3 Glucose 112 H Calcium 10.4 Cardiac Enzymes 07/06/25 07/06/25 Range/Units 09:54 15:34 Troponin I 0.092 H* 0.293 H* D (0.0-0.045) ng/mL Liver Function 07/06/25 Range/Units 09:54 Total Bilirubin 0.6 (0.3-1.2) mg/dL AST 50 H (0-34) U/L ALT 35 (10-49) U/L Alkaline Phosphatase 158 H (46-116) U/L Albumin 5.1 H (3.4-4.8) gm/dL Quality Measures Quality Measures none Medications Home Medications and Allergies Home Medications ?Medication ?Instructions ?Recorded ?Confirmed ?Type omeprazole 20 mg tablet,delayed 20 mg PO QDAY 07/06/25 07/06/25 History release Allergies Allergy/AdvReac Type Severity Reaction Status Date / Time No Known Allergies Allergy Verified 07/06/25 09:41 Visit Medications Discontinued Medications Acetaminophen (Acetaminophen 325 Mg Tablet) 650 mg PO X1 ONE Stop: 07/06/25 13:44 Last Admin: 07/06/25 14:16 Dose: 650 mg Aspirin (Aspirin 81 Mg Chew) 81 mg PO X1 ONE Stop: 07/06/25 10:12 Last Admin: 07/06/25 12:22 Dose: 81 mg Labetalol HCl (Labetalol Inj 5 Mg/Ml Vial 20 Ml) 10 mg IVP X1 ONE Stop: 07/06/25 16:16 Last Admin: 07/06/25 16:19 Dose: 10 mg Losartan Potassium (Losartan Potassium 25 Mg Tablet) 50 mg PO X1 ONE Stop: 07/06/25 13:44 Last Admin: 07/06/25 14:16 Dose: 50 mg Morphine Sulfate (Morphine Sulf Inj 10 Mg/Ml Vial) 2 mg IVP X1 ONE Stop: 07/06/25 15:54 Last Admin: 07/06/25 16:05 Dose: 2 mg Assessment & Plan Plan Aimee Manzano is a 64F with reported PMHx of hypertension, hypercholesterolemia, stroke with left-sided deficits, GERD, and UTI who was called in by the ED physician after feeling unwell with chest pain upon getting the news about her 's demise earlier in the day. #Chest pain, emotional distress, likely 2/2 Takotsubo cardiomyopathy #Elevated troponin-mostly NSTEMI type II > NSTEMI type I Patient with unreported MHx of heart disease had developed sudden-onset chest pain upon receiving the news about demise of her in the morning. EKG showed sinus tachycardia. initial troponins were elevated at 0.092, which trended up to 0.293 6h later. Troponinemia could be related to NSTEMI type ii: Demand/Supply mismatch but will need to rule out type I also given her significant risk factors for CAD including the history of hypertension diabetes mellitus, history of smoking with more than [id number] smoking history along with family history Preliminary bedside ultrasound showed good LV contractility. Plan: -TTE echocardiogram ordered to assess for wall motion abnormalities and check LV function hypertension as well as diastolic function - Will need to rule out Takotsubo cardiomyopathy. -If patient reports continued chest pain, consider heparin loading dose with 60u/kg (4000u max) followed by drip at 12u/kg/h per ACS guidelines. -Trend troponins Q6h -Recommend keeping K+ >4 and Mg >2 at all times. -Patient on cardiac telemetry #Hypertensive emergency SBP peaked at 183 and HR 130 Evidence of endorgan damage with elevated troponins and chest pain Patient currently on metoprolol PO 100mg QD and losartan 50mg QD Plan: - Consider more aggressive BP reduction: a reduction by about 25% within 2-4h; down to 160/100 post-6h. Consider reducing BP further in the continuous churn buttermaker (eg, <140/<90 mmHg or <130/<80 mmHg) - Consider switching metoprolol PO 100mg QD to carvedilol PO 12.5mg BID for added BP lowering effect through alpha-adrenergic blockage. #CVA hx w/residual deficits #Hypertension #Hyperlipidemia Chronic Plan: ? Resume home aspirin ? Resumed home Lipitor 80 mg at bedtime Thank you for cardiology consultation. We appreciate the opportunity to participate in this patient's care. Will continue to follow-up on this patient This case was discussed with my attending physician, Dr. Trujillo, correctional supervisor lieutenant. Raeann Hughes, PGY I Attending Provider Attestation/Addendum I have personally seen and examined the patient separately on the above date of service and discussed the plan of care with the resident. I reviewed the resident Dr. Cary consultation progress note and agree with the resident findings and plan in the note above and have also edited the documentation to reflect my findings and plan. Christiano Trujillo M.D. Interventional Cardiology
--- NOTE | 2025-07-06 17:43 | ESHP_ITS ---
<Statement entered by Dennis Jon MD - 07/06/25 20:10> I have reviewed the note and agree with the resident's assessment & plan with exceptions as below. I have personally reviewed labs, imaging, home meds/prior records, examined the patient, formulated and discussed management plan with the IM team. This is a 64 y/o female with past medical history of CVA with left-sided upper extremity residual deficits, who comes in for evaluation chest pain shortly after patient's had in the emergency room. She reported that the pain was a sudden onset and that she had never had these type of feelings. She is not did note that it gets worse with exertion or movement, however she says that she has never had pain like this before and that is rated 9 out of 10 and now has resolved. She also reports she has never seen a video news editor or had heart problems. In the setting of acuity, patient could have Takotsubo cardiomyopathy, however this would need to be seen with echocardiogram. Patient was evaluated by the ED shortly after she developed this chest pain. #Chest pain DDx: Takotsubo cardiomyopathy, ACS, panic attack Plan: ? Cardiology consulted, appreciate recommendations ? Echo ? Telemetry ?Cardiac trifurcation #Elevated troponin Could be related to demand ischemia Could be related to Takotsubo Plan: ? Trend troponin every 6 hours until peak #Hypertensive emergency SBP peaked at 183 Evidence of endorgan damage with elevated troponins and chest pain Plan: ? Do not correct systolic blood pressure more than 25% within the first 24 hours ? Resumed home metoprolol XL #CVA hx w/residual deficits #Hypertension #Hyperlipidemia Chronic Plan: ? As above ? Resume home aspirin ? Resumed home Lipitor 80 mg at bedtime ? Cardiac stratification Dennis Jon, PGY-2 Internal Medicine Documentation for date of: 07/06/25 HPI History of Present Illness History of present illness: 63 year old female with PMHx HTN, hypercholesterolemia, CVA 7 years ago with residual left sided weakness. Came to the ED b/c had an ID, but he enroute. Patient began having chest pain and was advised to check in to the ED. In the ED patient was hypertensive and tachycardic (182/89, 130). She had a leukocytosis and borderline anemia (normocytic), JOSUÉ (Cr:1.3), elevated troponins. Head CT: noncontributory. EKG sinus tachy QTc: 442, w/o ST elevations. CXR: no lobar PNA or pulm edema. Cards was consulted for acute coronary syndrome and she was treated with tylenol, metop 100mg, aspirin 81mg, labetalol 10mg, losartan 50mg, morphine 2mg. atorvastatin 80mg. Upon initial evaluation patient was very morose but attempted humor to keep her spirits up. She reported feeling fine at the moment once she was given medication. She states she has not taken any of her home medications yet today. She currently denies all symptoms cough, SOB, chest pain, pain that radiates to her left arm, pain that radiates to her neck, epigastric pain or discomfort, and numbness or weakness. She expresses great sadness at the passing of her soulmate. Code: Full Insulin: No Medical Hx: HTN, hypercholesterolemia, CVA with residual left side weakness, PTSD Medications: Aspirin 81 mg QD, Lipitor 80 mg QD, Gava 100mg TID, Losartan 50mg QD, metoprolol 100 mg QD, zofran 4mg QD Allergies: Latex irritation Surgical history: Oral surgery for gum disease Fhx: Not appropriate time to ask Living: passed today Work: NA Alcohol: shot of vodka 1x/week Cigarettes/tobacco: quit 10-15 years ago (1/4 pack/day) Recreational drugs: Cannabis daily Patient admitted for: NSTEMI I vs II All 12 systems reviewed and were negative except otherwise stated in HPI. Exam Vital Signs Temp Pulse Resp BP Pulse Ox O2 Del Method 98.7 F 119 H 15 173/91 H 98 Room Air 07/06/25 10:06 07/06/25 17:00 07/06/25 17:00 07/06/25 17:00 07/06/25 17:00 07/06/25 10:06 Narrative Exam GENERAL APPEARANCE: AOx3. NAD, obese, morose, activity normal for age, well developed/ well nourished, no cyanosis, pallor, or diaphoresis. Has a walker/cane and boot on left foot HEENT: Normocephalic atraumatic, no facial trauma, neck is supple. Lids/conjunctiva normal. Mucous membranes moist, nares normal, lips/teeth normal uvula midline without oral pharyngeal erythema, exudate or swelling TMs normal bilaterally. No lymphangitis/lymphedema. [place] on left side of skull from fall (2021) CARDIAC: Tachy regular rhythm, S1+S2 heard. No murmurs, rubs, or gallops noted. No JVD or hepatojugular reflux seen RESPIRATORY: respiratory effort normal, speaks in full sentences, no tripod position, no accessory muscle use. Lungs clear to auscultation without rhonchi, wheezes, rales ABDOMINAL: NBS. Soft, ND/NT. No evidence of fluid wave. No pulsatile masses on exam, rebound tenderness, Cotton sign or pain over Mcburney's point. MUSCLES/EXTREMITIES: No abnormal range of motion, no swelling. Left arm clenched from residual CVA DERM: Warm, pink and dry. No rashes, dermatoses, petechiae or lesions. NEUROLOGICAL: Speech is clear and appropriate. Normal level of consciousness. C hronic Left sided weakness PSYCH: Normal mood and affect. Judgement/competence is appropriate Results: Labs 07/07/25 05:06 07/07/25 05:06 Labs: Short CBC 07/06/25 Range/Units 09:54 WBC 13.4 H (3.6-11.0) Thou/mm3 Hgb 11.8 L (12.0-16.0) g/dL Hct 35.2 L (36.0-46.0) % Plt Count 264 (140-440) Thou/mm3 BMP 07/06/25 09:54 Sodium 145 Potassium 4.2 Chloride 109 H Carbon Dioxide 20.3 BUN 24 H Creatinine 1.3 Glucose 112 H Calcium 10.4 Cardiac Enzymes 07/06/25 07/06/25 Range/Units 09:54 15:34 Troponin I 0.092 H* 0.293 H* D (0.0-0.045) ng/mL Liver Function 07/06/25 Range/Units 09:54 Total Bilirubin 0.6 (0.3-1.2) mg/dL AST 50 H (0-34) U/L ALT 35 (10-49) U/L Alkaline Phosphatase 158 H (46-116) U/L Albumin 5.1 H (3.4-4.8) gm/dL Quality Measures Quality Measures none Medications Home Medications and Allergies Home Medications ?Medication ?Instructions ?Recorded ?Confirmed ?Type omeprazole 20 mg tablet,delayed 20 mg PO QDAY 07/06/25 07/06/25 History release Allergies Allergy/AdvReac Type Severity Reaction Status Date / Time No Known Allergies Allergy Verified 07/06/25 09:41 Visit Medications Acetaminophen (Acetaminophen 325 Mg Tablet) 650 mg PO Q6H PRN PRN Reason: Fever >101.5 Stop: 08/05/25 17:28 Aspirin (Aspirin Ec 81 Mg Tabec) 81 mg PO QDAY PRN PRN Reason: cva Stop: 08/06/25 17:38 Atorvastatin Calcium (Atorvastatin Calcium 20 Mg Tablet) 80 mg PO QDAY [facility] Stop: 08/05/25 08:59 Docusate Sodium (Docusate Sod 100 Mg Capsule) 100 mg PO QDAY PRN; Protocol PRN Reason: CONSTIPATION Stop: 08/05/25 17:28 Gabapentin (Gabapentin 100 Mg Capsule) 100 mg PO TID PRN PRN Reason: nerve pain Stop: 08/05/25 17:38 Heparin Sodium (Porcine) (Heparin Sod Inj 5000 Unit/Ml Vial) 5,000 unit SC Q12HR [facility] Stop: 07/20/25 20:59 Losartan Potassium (Losartan Potassium 25 Mg Tablet) 50 mg PO QDAY [facility] Stop: 08/06/25 08:59 Metoprolol Succinate (Metoprolol Succinate Xl 25 Mg Tabcr) 100 mg PO QDAY [facility] Stop: 08/05/25 17:44 Ondansetron HCl (Ondansetron Inj 2 Mg/Ml Inj 2 Ml) 4 mg IVP Q6H PRN; Protocol PRN Reason: NAUSEA OR VOMITING Stop: 08/05/25 17:28 Pantoprazole Sodium (Pantoprazole Inj 40 Mg Vial) 40 mg IVP QDAY [facility] Stop: 08/06/25 08:59 Discontinued Medications Acetaminophen (Acetaminophen 325 Mg Tablet) 650 mg PO X1 ONE Stop: 07/06/25 13:44 Last Admin: 07/06/25 14:16 Dose: 650 mg Aspirin (Aspirin 81 Mg Chew) 81 mg PO X1 ONE Stop: 07/06/25 10:12 Last Admin: 07/06/25 12:22 Dose: 81 mg Labetalol HCl (Labetalol Inj 5 Mg/Ml Vial 20 Ml) 10 mg IVP X1 ONE Stop: 07/06/25 16:16 Last Admin: 07/06/25 16:19 Dose: 10 mg Losartan Potassium (Losartan Potassium 25 Mg Tablet) 50 mg PO X1 ONE Stop: 07/06/25 13:44 Last Admin: 07/06/25 14:16 Dose: 50 mg Morphine Sulfate (Morphine Sulf Inj 10 Mg/Ml Vial) 2 mg IVP X1 ONE Stop: 07/06/25 15:54 Last Admin: 07/06/25 16:05 Dose: 2 mg Assessment & Plan Plan 63 year old female with PMHx HTN, hypercholesterolemia, CVA 7 years ago with residual left sided weakness, p/w chest pain immediately following husbands passing from an ID enroute to the hospital. Presentation concerning for ACS or stress induced cardiomyopathy. #NSTEMI I vs II #possible stress induced cardiomyopathy NSTEMI 2 most likely due to relief with medicine and calming most likely due to supply demand mismatch without thrombosis. Takotsubo is favored due to emotional trigger , but less liekly because clinical suspsicion for obstuctive CAD based on past CVA. Patient has uncontrolled hypertension and tachycardia with signs of end organ damage (elevated troponins and creatinine), presenting with acute chest pain following very stressful life event. EKG showed sinus tachycardia. She has risk factors HTN, hypercholesterolemia, and past CVA. WILBERTO score of 3 (>3 CAD risk factors, ASA use past 7 days, and positive cardiac markers). Plan: -Trend troponins -Cards consulted -ECHO:___ -A1C:____ -Heparin 11.25 units/kg/hr -Restart home meds -Metoprolol succinate 100mg PO QD -Losartan 50mg PO QD -Aspirin 81 mg PO QD #Hx of CVA #Residual L sided weakness Plan: -Continue home med Gabapentin 100 mg PO TID #Hypercholesterolemia Continue home meds as above Plan: -Lipid panel: -Lipitor 80mg PO QD #HTN Plan: -Continue losartan as above #Leukocytosis, reactive Most likely reactive in setting of intense stress and demand mismatch ischemia Plan: -FUP CBC in AM #PTSD Consider hydroxyzine or benadryl PRN Health Maintenance: Code status: Full DVT prophylaxis: Heparin GI prophylaxis: Zofran, Protonix 40 Diet: Cardiac Benson: No Lines: PIV Supplemental O2: NC Disposition: Admitted for NSTEMI work up Patient seen and reviewed with attending Dr. Guadarrama and supervising resident Dr. Jon. Note written by Kayode Malik MD PGY-1 Attending Provider Attestation/Addendum I reviewed labs, imaging, EKG, home medications and prior available records. Face to face evaluation was performed by me. I have personally examined the patient and discussed assessment and plan with the IM team. I reviewed the resident note and agree with the plan with exceptions as below. Chest pain at rest Elevated troponin Uncontrolled hypertension History of CVA with left-sided weakness Essential hypertension Hyperlipidemia Patient lost her on the day of admission Elevated troponin and BP can be in setting of acute stress She does have risk factors for ACS Started the patient on aspirin and atorvastatin Consulted cardiology Started therapeutic heparin Started losartan and metoprolol
[2025-07-06] MEDS: METOPROLOL SUCCINATE XL 25 MG TABCR 100 MG PO (17:59)
[2025-07-06] MEDS: ATORVASTATIN CALCIUM 20 MG TABLET 80 MG PO (18:16)
[2025-07-06 19:36] LABS: Collection Type, Urine Clean Catch
[2025-07-06 19:57] LABS: Bacteria,Urine Rare; Bilirubin,Urine Negative (Negative); Blood,Urine Negative (Negative); Clarity,Urine Clear (Clear/Hazy); Color,Urine Lt-Yellow (Lt Yel-Yel); Glucose, Urine Negative (Negative); Ketones,Urine Trace (Negative); Leukocyte Esterase,Urine Positive (Negative); Nitrite,Urine Positive (Negative); PH,Urine 6.0 (5.0-7.0); Protein,Urine Negative (Neg - Trace); RBC,Urine 3 /hpf (0-3); Specific Gravity,Urine 1.016 (1.001-1.035); Squamous Epithelial Cell,Urine 2 /hpf (0-5); Urobilinogen,Urine Negative mg/dL (0.0-1.0); WBC,Urine 17 /hpf (0-5)
[2025-07-06] MEDS: ONDANSETRON INJ 2 MG/ML INJ 2 ML 4 MG IVP (20:31)
[2025-07-06 21:33] LABS: INR 1.0 (0.9-1.3); Partial Thromboplastin Time 26.5 Seconds (22.0-36.0); Prothrombin Time 11.2 Seconds (9.0-12.2); Troponin I 0.440 ng/mL (0.0-0.045)
[2025-07-06] MEDS: Heparin/D5w 25K 250 ML Ivpb 25,000 UNIT/250 ML BAG 9.957 UNIT IV (22:53)
[2025-07-06] MEDS: HEPARIN SOD INJ 5000 UNIT/ML VIAL 4000 UNIT IV (22:54)
[2025-07-07] VITALS (13 sets, daily range): BP systolic 116–169; BP diastolic 72–95; PULSE 73–112; RESP 16–98; TEMP 36.2–36.9; O2SAT 96–99; BMI 34.0
[2025-07-07 03:21] LABS: Troponin I 0.393 ng/mL (0.0-0.045)
[2025-07-07] MEDS: ONDANSETRON INJ 2 MG/ML INJ 2 ML 4 MG IVP (03:30)
[2025-07-07 06:05] LABS: Basophils # (Auto) 0.0 Thou/mm3 (0.0-0.2); Basophils % (Auto) 0 % (0-2.5); Eosinophils # (Auto) 0.0 Thou/mm3 (0.0-0.5); Eosinophils % (Auto) 0 % (0-10); Hematocrit 32.3 % (36.0-46.0); Hemoglobin 10.6 g/dL (12.0-16.0); Immature Granulocytes Auto 0.17 Thou/mm3 (0.00-0.00); Lymphocytes # (Auto) 1.9 Thou/mm3 (1.0-4.8); Lymphocytes % (Auto) 14 % (10-50); Mean Corpuscular HGB Conc 32.8 g/dl (31.0-37.0); Mean Corpuscular Hemoglobin 31.2 pg (25.0-35.0); Mean Corpuscular Volume 95 fL (80-100); Monocytes # (Auto) 2.6 Thou/mm3 (0.0-0.8); Monocytes % (Auto) 19 % (0-12); Neutrophils # (Auto) 9.0 Thou/mm3 (1.8-7.7); Neutrophils % (Auto) 66 % (37-80); Nucleated Red Blood Cell # 0.00 Thou/mm3 (0.00-0.00); Nucleated Red Blood Cell % 0 /100 WBC (0); Platelet Count 250 Thou/mm3 (140-440); RDW Standard Deviation 51.3 fL (36.4-46.3); Red Blood Count 3.40 Miln/mm3 (4.00-5.20); White Blood Count 13.7 Thou/mm3 (3.6-11.0)
[2025-07-07 06:17] LABS: INR 1.0 (0.9-1.3); Partial Thromboplastin Time 39.6 Seconds (22.0-36.0); Prothrombin Time 11.2 Seconds (9.0-12.2)
[2025-07-07 06:28] LABS: Alanine Aminotransferase 24 U/L (10-49); Albumin, Serum 4.4 gm/dL (3.4-4.8); Albumin/Globulin Ratio 1.9 (1.2-2.2); Alkaline Phosphatase 130 U/L (46-116); Anion Gap 13 (7-16); Aspartate Amino Transferase 36 U/L (0-34); BUN/Creatinine Ratio 16 Ratio (12-20); Bilirubin,Total 0.6 mg/dL (0.3-1.2); Blood Urea Nitrogen 19 mg/dL (9-23); Calcium 9.3 mg/dL (8.3-10.6); Calcium (Corrected) 9.3 mg/dL (8.5-10.1); Carbon Dioxide 20.3 mMol/L (20.0-31.0); Cardiac Risk Estimate 2.9 RATIO (3.7-5.6); Chloride 110 mMol/L (98-107); Cholesterol 167 mg/dL (132-200); Creatinine (Component) 1.2 mg/dL (0.6-1.3); Estimated Creatinine Clearance 52.1 mL/min (>60); Globulin 2.3 gm/dL (2.3-3.5); Glucose 105 mg/dL (74-106); HDL Cholesterol 58 mg/dL (40-60); LDL Cholesterol,Calculated 76 mg/dL (0-130); Magnesium 1.7 mg/dL (1.6-2.6); Osmolality,Calculated 287 (275-295); Phosphorous 2.7 mg/dL (2.4-5.1); Potassium 4.2 mMol/L (3.4-5.1); Sodium 143 mMol/L (136-145); Total Protein 6.7 gm/dL (5.7-8.2); Triglycerides 163 mg/dL (30-150); eGFR 51 See Note
[2025-07-07 06:29] LABS: Troponin I 0.357 ng/mL (0.0-0.045)
[2025-07-07 06:30] LABS: Glucose Estimated Average 108 mg/dL (80-131); Hemoglobin A1C 5.4 % Hgb (4.8-6.0)
[2025-07-07] MEDS: METOPROLOL SUCCINATE XL 25 MG TABCR 100 MG PO (08:41)
[2025-07-07] MEDS: ATORVASTATIN CALCIUM 20 MG TABLET 80 MG PO (08:42)
[2025-07-07] MEDS: LOSARTAN POTASSIUM 25 MG TABLET 50 MG PO (08:42)
[2025-07-07] MEDS: ASPIRIN EC 81 MG TABEC PO (08:42)
[2025-07-07] MEDS: GABAPENTIN 100 MG CAPSULE PO ×3 (09:22→21:42)
[2025-07-07] MEDS: HEPARIN SOD INJ 5000 UNIT/ML VIAL 2000 UNIT IV (09:23)
--- NOTE | 2025-07-07 10:37 | PD.RESPRO ---
Documentation for date of: 07/07/25 Subjective Subjective Interval history: No acute events overnight. Patient seen and examined at bedside. Vitals and labs reviewed. Patient states she feels sad and stressed with all of the things regarding dealing with the loss of her , endorses headache. Patient denies fever, chest pain, shortness of breath, abdominal pain. Exam Vital Signs Temp Pulse Resp BP Pulse Ox O2 Del Method 97.2 F 94 18 166/85 H 97 Room Air 07/07/25 04:00 07/07/25 08:42 07/07/25 06:37 07/07/25 08:42 07/07/25 04:00 07/07/25 04:00 Narrative Exam GENERAL APPEARANCE: AOx3. NAD, obese, morose, activity normal for age, well developed/ well nourished, no cyanosis, pallor, or diaphoresis. Has a walker/cane and boot for foot off to the side HEENT: Normocephalic atraumatic, no facial trauma, neck is supple. Lids/conjunctiva normal. Mucous membranes moist, nares normal, lips/teeth normal uvula midline without oral pharyngeal erythema, exudate or swelling TMs normal bilaterally. No lymphangitis/lymphedema. [place] on left side of skull from fall (2021) CARDIAC: Regular rate/rhythm, S1+S2 heard. No murmurs, rubs, or gallops noted. No JVD or hepatojugular reflux seen RESPIRATORY: respiratory effort normal, speaks in full sentences, no tripod position, no accessory muscle use. Lungs clear to auscultation without rhonchi, wheezes, rales ABDOMINAL: NBS. Soft, ND/NT. No evidence of fluid wave. No pulsatile masses on exam, rebound tenderness, Cotton sign or pain over Mcburney's point. MUSCLES/EXTREMITIES: No abnormal range of motion, no swelling. Left arm clenched from residual CVA DERM: Warm, pink and dry. No rashes, petechiae or lesions. NEUROLOGICAL: Speech is clear and appropriate. Normal level of consciousness. Chronic Left sided weakness PSYCH: Normal mood and affect. Judgment/competence is appropriate Objective Labs 07/08/25 06:00 07/08/25 06:00 Labs: Laboratory Results - last 24 hr 07/06/25 07/06/25 07/06/25 09:54 15:34 19:25 WBC 13.4 H RBC 3.70 L Hgb 11.8 L Hct 35.2 L MCV 95 MCH 31.9 MCHC 33.5 RDW Std Deviation 50.1 H Plt Count 264 Neut % (Auto) 69 Lymph % (Auto) 13 [place] % (Auto) 16 H Eos % (Auto) 1 Baso % (Auto) 0 Neut # (Auto) 9.3 H Lymph # (Auto) 1.7 [place] # (Auto) 2.1 H Eos # (Auto) 0.1 Baso # (Auto) 0.0 Immature Gran # (Auto) 0.19 H Absolute Nucleated RBC 0.00 Immature Gran % 1 H Nucleated RBC % 0 PT INR APTT Sodium 145 Potassium 4.2 Chloride 109 H Carbon Dioxide 20.3 Anion Gap 16 BUN 24 H Creatinine 1.3 Estim Creat Clear Calc Not Performed. eGFR 46 L BUN/Creatinine Ratio [address] Glu mg/dL Hemoglobin A1c Calculated Osmolality 293 Calcium 10.4 Corrected Calcium 10.4 H Phosphorus Magnesium Total Bilirubin 0.6 AST 50 H ALT 35 Alkaline Phosphatase 158 H Troponin I 0.092 H* 0.293 H* D Total Protein 7.8 Albumin 5.1 H Globulin 2.7 Albumin/Globulin Ratio 1.9 Triglycerides Cholesterol LDL Cholesterol, Calc HDL Cholesterol Cholesterol/HDL Ratio Ur Collection Type Clean Catch Urine Color Lt-Yellow Urine Clarity Clear Urine pH 6.0 Ur Specific [place] 1.016 Urine Protein Negative Urine Glucose (UA) Negative Urine Ketones Trace Urine Blood Negative Urine Nitrite Positive Urine Bilirubin Negative Urine Urobilinogen (Auto) Negative Ur Leukocyte Esterase Positive Urine RBC 3 Urine WBC 17 H Ur Squamous Epith Cells 2 Urine Bacteria Rare 07/06/25 07/07/25 07/07/25 20:47 02:00 05:06 WBC 13.7 H RBC 3.40 L Hgb 10.6 L Hct 32.3 L MCV 95 MCH 31.2 MCHC 32.8 RDW Std Deviation 51.3 H Plt Count 250 Neut % (Auto) 66 Lymph % (Auto) 14 [place] % (Auto) 19 H Eos % (Auto) 0 Baso % (Auto) 0 Neut # (Auto) 9.0 H Lymph # (Auto) 1.9 [place] # (Auto) 2.6 H Eos # (Auto) 0.0 Baso # (Auto) 0.0 Immature Gran # (Auto) 0.17 H Absolute Nucleated RBC 0.00 Immature Gran % 1 H Nucleated RBC % 0 PT 11.2 11.2 INR 1.0 1.0 APTT 26.5 39.6 H D Sodium 143 Potassium 4.2 Chloride 110 H Carbon Dioxide 20.3 Anion Gap 13 BUN 19 Creatinine 1.2 Estim Creat Clear Calc 52.1 L eGFR 51 L BUN/Creatinine Ratio [address] Glu mg/dL 108 Hemoglobin A1c 5.4 Calculated Osmolality 287 Calcium 9.3 Corrected Calcium 9.3 Phosphorus 2.7 Magnesium 1.7 Total Bilirubin 0.6 AST 36 H ALT 24 Alkaline Phosphatase 130 H D Troponin I 0.440 H* 0.393 H* 0.357 H* Total Protein 6.7 Albumin 4.4 D Globulin 2.3 Albumin/Globulin Ratio 1.9 Triglycerides 163 H Cholesterol 167 LDL Cholesterol, Calc 76 HDL Cholesterol 58 Cholesterol/HDL Ratio 2.9 L Ur Collection Type Urine Color Urine Clarity Urine pH Ur Specific [place] Urine Protein Urine Glucose (UA) Urine Ketones Urine Blood Urine Nitrite Urine Bilirubin Urine Urobilinogen (Auto) Ur Leukocyte Esterase Urine RBC Urine WBC Ur Squamous Epith Cells Urine Bacteria Quality Measures Quality Measures VTE prophylaxis Assessment & Plan Assessment Current Active Medications: Generic Name Dose Route Start Last Admin Trade Name Freq PRN Reason Stop Dose Admin Acetaminophen 650 mg 07/06/25 17:29 07/06/25 22:54 Acetaminophen 325 Mg Tablet PO 08/05/25 17:28 650 mg Q6H PRN Administration Fever >101.5 Aspirin 81 mg 07/07/25 09:00 07/07/25 08:42 Aspirin Ec 81 Mg Tabec PO 08/06/25 08:59 81 mg QDAY NAZANIN Administration Atorvastatin Calcium 80 mg 07/06/25 09:00 07/07/25 08:42 Atorvastatin Calcium 20 Mg Tablet PO 08/05/25 08:59 80 mg QDAY NAZANIN Administration Docusate Sodium 100 mg 07/06/25 17:29 Docusate Sod 100 Mg Capsule PO 08/05/25 17:28 QDAY PRN CONSTIPATION Protocol Gabapentin 100 mg 07/07/25 09:15 07/07/25 09:22 Gabapentin 100 Mg Capsule PO 08/06/25 09:14 100 mg TID NAZANIN Administration Heparin Sodium/Dextrose 25,000 unit in 250 mls @ 9.957 mls/hr 07/06/25 22:50 07/07/25 08:56 Heparin In D5w Ivpb IV 07/20/25 22:49 13.2 units/kg/hr .Q24H NAZANIN 11.735 mls/hr Titration Protocol 11.2 UNITS/KG/HR Losartan Potassium 50 mg 07/06/25 19:55 07/07/25 08:42 Losartan Potassium 25 Mg Tablet PO 08/05/25 19:54 50 mg QDAY NAZANIN Administration Melatonin 3 mg 07/07/25 21:00 Melatonin 3 Mg Tablet PO 08/06/25 20:59 HS NAZANIN Metoprolol Succinate 100 mg 07/06/25 17:45 07/07/25 08:41 Metoprolol Succinate Xl 25 Mg Tabcr PO 08/05/25 17:44 100 mg QDAY NAZANIN Administration Ondansetron HCl 4 mg 07/06/25 17:29 07/07/25 03:30 Ondansetron Inj 2 Mg/Ml Inj 2 Ml IVP 08/05/25 17:28 4 mg Q6H PRN Administration NAUSEA OR VOMITING Protocol Pantoprazole Sodium 40 mg 07/07/25 09:00 07/07/25 08:41 Pantoprazole Inj 40 Mg Vial IVP 08/06/25 08:59 40 mg QDAY NAZANIN Administration Plan Aimee Manzano is a 63 year old female with PMHx HTN, hypercholesterolemia, 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 Admitted for nstemi with elevated trops, planning for cardiac catheterization 07/08 (npo midnight). #Chest pain, emotional distress, likely 2/2 Takotsubo cardiomyopathy #Elevated troponin NSTEMI 2 most likely due to relief with medicine and calming most likely due to supply demand mismatch without thrombosis. Takotsubo is favored due to emotional trigger , but less liekly because clinical suspsicion for obstuctive CAD based on past CVA. Patient has uncontrolled hypertension and tachycardia with signs of end organ damage (elevated troponins and creatinine), presenting with acute chest pain following very stressful life event. EKG showed sinus tachycardia. She has risk factors HTN, hypercholesterolemia, and past CVA. WILBERTO score of 3 (>3 CAD risk factors, ASA use past 7 days, and positive cardiac markers). Hgb A1c came back at 5.4. Plan: -Cards consulted -NPO after midnight (cathode washer 07/08) -Echo ordered, f/u -Heparin 11.25 units/kg/hr -K+ >4 and Mg >2 at all times. -Metoprolol succinate 100mg PO QD -Losartan 50mg PO QD -Aspirin 81 mg PO QD #Hx of CVA w/ Residual L sided weakness #HTN #Hypercholesterolemia -Continued losartan as above -Continued home med Gabapentin 100 mg PO TID -Lipitor 80mg PO QD #Leukocytosis, reactive Most likely reactive in setting of intense stress and demand mismatch ischemia Plan: -continue to f/u cbc #PTSD Consider hydroxyzine or benadryl PRN -started melatonin 3 mg po hs Health Maintenance: Code status: Full DVT prophylaxis: Heparin GI prophylaxis: Zofran, Protonix 40 Diet: Cardiac; NPO after midnight (cathode washer) Benson: No Lines: PIV Supplemental O2: none Disposition: Admitted for NSTEMI work up Patient plan of care was discussed with the attending physician, Dr. Thierry Griffith MD PGY-1 Attending Provider Attestation/Addendum I reviewed labs, imaging, EKG, home medications and prior available records. Face to face evaluation was performed by me. I have personally examined the patient and discussed assessment and plan with the IM team. I reviewed the resident note and agree with the plan with exceptions as below. Chest pain at rest Elevated troponin Uncontrolled hypertension History of CVA with left-sided weakness Essential hypertension Hyperlipidemia Patient lost her on the day of admission Elevated troponin and BP can be in setting of acute stress Troponin peaked She does have risk factors for ACS Started the patient on aspirin and atorvastatin Consulted cardiology: Keep the patient n.p.o. after midnight for possible cardiac cath on 07/08 Started therapeutic heparin Started losartan and metoprolol Ordered home health
[2025-07-07 10:39] LABS: Anisocytosis 1+; Band Neutrophils (Manual) 4 % (0-6); Lymphocytes (Manual) 13 % (20-44); Monocytes (Manual) 15 % (2-9); Neutrophils (Manual) 68 % (50-70)
[2025-07-07 11:01] LABS: Path Review Blood Smear Sent to Pathologist
[2025-07-07 11:48] LABS: Partial Thromboplastin Time 74.7 Seconds (22.0-36.0)
[2025-07-07 15:59] LABS: Partial Thromboplastin Time 34.9 Seconds (22.0-36.0)
--- NOTE | 2025-07-07 16:00 | PC.SS ---
SS met with patient who is alert/oriented. Patient was able to verify demographics. Patient's was in ER yesterday with cardiac arrest and . Patient states when she arrived to ER to see him she became ill and was admitted for Nstemi. Patient states she has hx: CVA. Patient has left side deficit. Patient states her spouse used to be her careprovider and assist with all ADL's. Patient became very upset when [facility] called today needing to start the paperwork process for arrangements. SS provided emotional support and discussed d/c options post hospitalization. Patient's daughter, Jaelyn Harvey resides in [facility] and will be arriving here next week to permanently move in with patient. Patient's son resides in [place] and is also on his way and will stay temporarily. SS discussed HH vs SNF as alternate options. Patient declined SnF and prefers HH services. SS also discussed a private care agency to have careproviders assist her with ADL's in her home. Patient agreeable to this option but is going to make calls to other surrounding friends to assist. Patient's friend is supposed to come in to see her this afternoon to decide the plans. Patient uses a manual and electric wheelchair at home. Patient states she can ambulate short distances. Patient's PCP: Dr. Patel at the [facility]. Patient's last appt was in May. Alt medical decision maker: Father, Nic Manzano, and her daughter, Jaelyn Harvey, is second alternate Patient is pending laborer pipeline tomorrow. D/c plan: return home with HH services. No preference. Patient to have either friends/family assist at home or private careproviders.
[2025-07-07] MEDS: HEPARIN SOD INJ 5000 UNIT/ML VIAL 4000 UNIT IVP (16:35)
[2025-07-07] MEDS: ACETAMINOPHEN 325 MG TABLET 650 MG PO (21:40)
[2025-07-07] MEDS: MELATONIN 3 MG TABLET PO (21:41)
[2025-07-07] MEDS: Heparin/D5w 25K 250 ML Ivpb 25,000 UNIT/250 ML BAG 15.291 UNIT IV (21:46)
--- NOTE | 2025-07-07 22:22 | ESPR_ITS ---
Documentation for date of: 07/07/25 Subjective Subjective Interval history: 07/07/2025: Patient was seen and examined at bedside. No acute events took place overnight. Patient denies chest pain, pressure, SOB, dizziness, or leg swelling. BP 154/77, HR 93, RR 18, T 97.6F, O2 97 RA. Labs: WBC 13.7, Hgb 10.6, MCV 95, K+ 4.2, CR 1.2, EGFR 51, BUN 19, GLC 105, Hgb A1c 5.4, Mg 1.7. Background: Aimee Manzano is a 64F with reported PMHx of hypertension, hypercholesterolemia, stroke with left-sided deficits, GERD, and UTI who was called in by the ED physician after feeling unwell with chest pain upon getting the news about her 's demise earlier in the day. She reports high BP with readings as high as 176/90. She takes losartan, metoprolol also for hypertension, and low-dose aspirin. She denies lightheadedness, or dizziness. Pt had a storke while a sleep which left her with left-sided deficits, with a fully contracted left arm, elbow, hand and fingers. She uses a cane and foot brace for mobility at home. Her left ankle is weak and her foot drops, so her foot has propensity to roll while she is on her feet and walking. She uses a boot brace to stablize her left lower leg. She had extreme burning sensation with urination, diagnosed with UTI 1wk ago. The pain has now resolved. No longer does she have her morning chest pain either. Allergies: dust and pollen PMHx: as above PSHx: oral surgeries for lost teeth from smoking. FHx: HTN in both parents. Grandmother from Alzheimer's at 104. SHx: Pt had smoked for some 30y, .25PPD, but has been tobacco free for 10-15y. She does not drink coffee. Pt reports smoking marijuana, the leaves of which she grows. She smokes to help with night's sleep. She reports PTSD since she first had stroke while sleep, and feels very fearful when lying that she would have a second episode. Patient drinks sips of Vodka couple times weekly. ED Course: BP 173/91, pulse 122, Temperature 98.7, pulse 130, respiratory rate 20, blood pressure 182/89, oxygen 98% on room air. Additional labs, WBC 13.4, hemoglobin 11.8, MCV 95 potassium 4.2 carbon dioxide 20.3 BUN 24 creatinine 1.3 glucose 112 initial troponins were elevated at 0.092, which trended up to 0.293 6h later. Patient completed chest x-ray showing mild atelectasis of left lower lobe. Normal heart size. No lobar pneumonia or pulmonary edema. Exam Vital Signs Temp Pulse Resp BP Pulse Ox O2 Del Method 97.6 F 93 18 154/77 H 97 Room Air 07/07/25 20:00 07/07/25 20:00 07/07/25 20:00 07/07/25 20:00 07/07/25 20:00 07/07/25 20:00 Narrative Exam General: Alert and oriented x3, No apparent distress. Skin: Intact, Warm, no rashes. HEENT: Normocephalic, Atraumatic. Normal neck range of motion, Supple. Trachea midline. Respiratory: Lungs are clear to auscultation, Breath sounds are equal bilaterally with equal chest expansion. Cardiovascular: tachycardic, sinus rhythym, normal S1, S2, No murmurs. Distal pulses 2+ Abdomen: Abdomen soft, non-distended, without erythema, or lesions. Normotensive bowel sounds x4. Percussion tympanic. Palpation nontender in all four quadrants. No organomagely. No guarding or rebound present. Musculoskeletal/Extremities: No erythema, swelling, tenderness of any joints. No edema of BLE. DP pulses +2/3 b/l. Full active ROM of all four extremities. Neurologic: NEURO: Oriented x3, cranial nerves II to XII grossly intact. Rt sided hemiplagia with hypercontracted and immobile Right upper extremity, Right foot drop and immobile ankle in a boot. Psych: Thoughts linear and responses appropriate. Objective Labs 07/07/25 05:06 07/07/25 05:06 Labs: Laboratory Results - last 24 hr 07/07/25 07/07/25 07/07/25 02:00 05:06 10:26 WBC 13.7 H RBC 3.40 L Hgb 10.6 L Hct 32.3 L MCV 95 MCH 31.2 MCHC 32.8 RDW Std Deviation 51.3 H Plt Count 250 Neut % (Auto) 66 Lymph % (Auto) 14 [place] % (Auto) 19 H Eos % (Auto) 0 Baso % (Auto) 0 Neut # (Auto) 9.0 H Lymph # (Auto) 1.9 [place] # (Auto) 2.6 H Eos # (Auto) 0.0 Baso # (Auto) 0.0 Immature Gran # (Auto) 0.17 H Absolute Nucleated RBC 0.00 Immature Gran % 1 H Neutrophils % (Manual) 68 Monocytes % (Manual) 15 H Nucleated RBC % 0 Band Neutrophils 4 Lymphocytes (Manual) 13 L Anisocytosis 1+ Smear Path Review Sent to Pathologist PT 11.2 INR 1.0 APTT 39.6 H D 74.7 H D Sodium 143 Potassium 4.2 Chloride 110 H Carbon Dioxide 20.3 Anion Gap 13 BUN 19 Creatinine 1.2 Estim Creat Clear Calc 52.1 L eGFR 51 L BUN/Creatinine Ratio [address] Glu mg/dL 108 Hemoglobin A1c 5.4 Calculated Osmolality 287 Calcium 9.3 Corrected Calcium 9.3 Phosphorus 2.7 Magnesium 1.7 Total Bilirubin 0.6 AST 36 H ALT 24 Alkaline Phosphatase 130 H D Troponin I 0.393 H* 0.357 H* Total Protein 6.7 Albumin 4.4 D Globulin 2.3 Albumin/Globulin Ratio 1.9 Triglycerides 163 H Cholesterol 167 LDL Cholesterol, Calc 76 HDL Cholesterol 58 Cholesterol/HDL Ratio 2.9 L 07/07/25 15:21 WBC RBC Hgb Hct MCV MCH MCHC RDW Std Deviation Plt Count Neut % (Auto) Lymph % (Auto) [place] % (Auto) Eos % (Auto) Baso % (Auto) Neut # (Auto) Lymph # (Auto) [place] # (Auto) Eos # (Auto) Baso # (Auto) Immature Gran # (Auto) Absolute Nucleated RBC Immature Gran % Neutrophils % (Manual) Monocytes % (Manual) Nucleated RBC % Band Neutrophils Lymphocytes (Manual) Anisocytosis Smear Path Review PT INR APTT 34.9 D Sodium Potassium Chloride Carbon Dioxide Anion Gap BUN Creatinine Estim Creat Clear Calc eGFR BUN/Creatinine Ratio Glucose Estimated Ave Glu mg/dL Hemoglobin A1c Calculated Osmolality Calcium Corrected Calcium Phosphorus Magnesium Total Bilirubin AST ALT Alkaline Phosphatase Troponin I Total Protein Albumin Globulin Albumin/Globulin Ratio Triglycerides Cholesterol LDL Cholesterol, Calc HDL Cholesterol Cholesterol/HDL Ratio Quality Measures Quality Measures VTE prophylaxis Assessment & Plan Assessment Current Active Medications: Generic Name Dose Route Start Last Admin Trade Name Freq PRN Reason Stop Dose Admin Acetaminophen 650 mg 07/06/25 17:29 07/07/25 21:40 Acetaminophen 325 Mg Tablet PO 08/05/25 17:28 650 mg Q6H PRN Administration Fever >101.5 Aspirin 81 mg 07/07/25 09:00 07/07/25 08:42 Aspirin Ec 81 Mg Tabec PO 08/06/25 08:59 81 mg QDAY NAZANIN Administration Atorvastatin Calcium 80 mg 07/06/25 09:00 07/07/25 08:42 Atorvastatin Calcium 20 Mg Tablet PO 08/05/25 08:59 80 mg QDAY NAZANIN Administration Docusate Sodium 100 mg 07/06/25 17:29 Docusate Sod 100 Mg Capsule PO 08/05/25 17:28 QDAY PRN CONSTIPATION Protocol Gabapentin 100 mg 07/07/25 09:15 07/07/25 21:42 Gabapentin 100 Mg Capsule PO 08/06/25 09:14 100 mg TID NAZANIN Administration Heparin Sodium/Dextrose 25,000 unit in 250 mls @ 9.957 mls/hr 07/06/25 22:50 07/07/25 21:46 Heparin In D5w Ivpb IV 07/20/25 22:49 17.2 units/kg/hr .Q24H NAZANIN 15.291 mls/hr Administration Protocol 11.2 UNITS/KG/HR Losartan Potassium 50 mg 07/06/25 19:55 07/07/25 08:42 Losartan Potassium 25 Mg Tablet PO 08/05/25 19:54 50 mg QDAY NAZANIN Administration Melatonin 3 mg 07/07/25 21:00 07/07/25 21:41 Melatonin 3 Mg Tablet PO 08/06/25 20:59 3 mg HS NAZANIN Administration Metoprolol Succinate 100 mg 07/06/25 17:45 07/07/25 08:41 Metoprolol Succinate Xl 25 Mg Tabcr PO 08/05/25 17:44 100 mg QDAY NAZANIN Administration Ondansetron HCl 4 mg 07/06/25 17:29 07/07/25 03:30 Ondansetron Inj 2 Mg/Ml Inj 2 Ml IVP 08/05/25 17:28 4 mg Q6H PRN Administration NAUSEA OR VOMITING Protocol Pantoprazole Sodium 40 mg 07/08/25 09:00 Pantoprazole 40 Mg Tablet PO 08/07/25 08:59 QDAY NAZANIN Protocol Plan Aimee Manzano is a 64F with reported PMHx of hypertension, hypercholesterolemia, stroke with left-sided deficits, GERD, and UTI who was called in by the ED physician after feeling unwell with chest pain upon getting the news about her 's demise earlier in the day. #Chest pain, emotional distress, likely 2/2 Takotsubo cardiomyopathy #Hypertension #Elevated troponin, resolved #NSTEMI type II, resolved. Patient with no reported MHx of heart disease had developed sudden-onset chest pain upon receiving news about demise of her in the morning. EKG showed sinus tachycardia. initial troponins were elevated at 0.092, which trended up to 0.293 6h later. Troponin peak 0.440, then trended down to 0.393, and 6H later to 0.357. Troponinemia could be related to NSTEMI type ii: Demand/Supply mismatch. Preliminary bedside ultrasound showed good LV contractility. Lipid panel: CH 167, LDL 76, HDL 58, TG 163 Hgb A1c 5.4. ASCVD risk of cardiovascular event in the next 10y is 7.6% Plan: -Given her elevated troponins plan for left heart cardiac catheterization tomorrow and keep her n.p.o. after breakfast. -Discussed the riskand alternatives of performing electrocardioversion including the risk of bleeding, heart attack, stroke and in detail. Patient agreeable and provided consent for the same. Will plan to do tomorrow early afternoon. -TTE echocardiogram ordered to assess for wall motion abnormalities - Heparin drip started with loading dose with 60u/kg (4000u max) followed by drip at 12u/kg/h per ACS guidelines. -Resume high intensity statin, Lipitor 80mg QD, given ASCVD risk >7.5% in the next 10y -Aspirin 81 mg once daily -Recommend keeping K+ >4 and Mg >2 at all times. -Patient on cardiac telemetry #Hypertensive emergency SBP peaked at 183 and HR 130 Evidence of endorgan damage with elevated troponins and chest pain Patient currently on metoprolol PO 100mg QD and losartan 50mg QD Plan: - Consider more aggressive BP reduction: a reduction by about 25% within 2-4h; down to 160/100 post-6h. Consider reducing BP further in the intermediate manager (eg, <140/<90 mmHg or <130/<80 mmHg) - Consider switching metoprolol PO 100mg QD to carvedilol PO 12.5mg BID for added BP lowering effect through alpha-adrenergic blockage. #CVA hx w/residual Left hemiplagia ? Resume home aspirin Thank you for cardiology consultation. We appreciate the opportunity to participate in this patient's care. Will continue to follow-up on this patient This case was discussed with my attending physician, Dr. Trujillo, senior data architect. Raeann Hughes, DO PGY I Attending Provider Attestation/Addendum I have personally seen and examined the patient separately on the above date of service and discussed the plan of care with the resident. I reviewed the resident Dr. Cary consultation progress note and agree with the resident findings and plan in the note above and have also edited the documentation to reflect my findings and plan. Christiano Trujillo M.D. Interventional Cardiology
[2025-07-07 23:22] LABS: Partial Thromboplastin Time 122.8 Seconds (22.0-36.0)
[2025-07-08] VITALS (24 sets, daily range): BP systolic 99–160; BP diastolic 62–96; PULSE 64–96; RESP 12–98; TEMP 35.9–36.6; O2SAT 94–100; BMI 34.0
[2025-07-08] MEDS: GABAPENTIN 100 MG CAPSULE PO (05:54)
[2025-07-08 06:15] LABS: Basophils # (Auto) 0.0 Thou/mm3 (0.0-0.2); Basophils % (Auto) 0 % (0-2.5); Eosinophils # (Auto) 0.1 Thou/mm3 (0.0-0.5); Eosinophils % (Auto) 1 % (0-10); Hematocrit 33.2 % (36.0-46.0); Hemoglobin 10.8 g/dL (12.0-16.0); Immature Granulocytes Auto 0.15 Thou/mm3 (0.00-0.00); Lymphocytes # (Auto) 2.4 Thou/mm3 (1.0-4.8); Lymphocytes % (Auto) 22 % (10-50); Mean Corpuscular HGB Conc 32.5 g/dl (31.0-37.0); Mean Corpuscular Hemoglobin 31.6 pg (25.0-35.0); Mean Corpuscular Volume 97 fL (80-100); Monocytes # (Auto) 2.0 Thou/mm3 (0.0-0.8); Monocytes % (Auto) 19 % (0-12); Neutrophils # (Auto) 6.0 Thou/mm3 (1.8-7.7); Neutrophils % (Auto) 56 % (37-80); Nucleated Red Blood Cell # 0.00 Thou/mm3 (0.00-0.00); Nucleated Red Blood Cell % 0 /100 WBC (0); Platelet Count 234 Thou/mm3 (140-440); RDW Standard Deviation 53.4 fL (36.4-46.3); Red Blood Count 3.42 Miln/mm3 (4.00-5.20); White Blood Count 10.6 Thou/mm3 (3.6-11.0)
[2025-07-08 06:37] LABS: INR 1.0 (0.9-1.3); Partial Thromboplastin Time 75.4 Seconds (22.0-36.0); Prothrombin Time 11.4 Seconds (9.0-12.2)
[2025-07-08 06:41] LABS: Alanine Aminotransferase 31 U/L (10-49); Albumin, Serum 4.5 gm/dL (3.4-4.8); Albumin/Globulin Ratio 2.0 (1.2-2.2); Alkaline Phosphatase 122 U/L (46-116); Anion Gap 12 (7-16); Aspartate Amino Transferase 56 U/L (0-34); BUN/Creatinine Ratio 13 Ratio (12-20); Bilirubin,Total 0.5 mg/dL (0.3-1.2); Blood Urea Nitrogen 15 mg/dL (9-23); Calcium 9.6 mg/dL (8.3-10.6); Calcium (Corrected) 9.6 mg/dL (8.5-10.1); Carbon Dioxide 22.8 mMol/L (20.0-31.0); Chloride 110 mMol/L (98-107); Creatinine (Component) 1.2 mg/dL (0.6-1.3); Estimated Creatinine Clearance 52.1 mL/min (>60); Globulin 2.3 gm/dL (2.3-3.5); Glucose 105 mg/dL (74-106); Magnesium 1.7 mg/dL (1.6-2.6); Osmolality,Calculated 289 (275-295); Phosphorous 2.4 mg/dL (2.4-5.1); Potassium 4.2 mMol/L (3.4-5.1); Sodium 145 mMol/L (136-145); Total Protein 6.8 gm/dL (5.7-8.2); eGFR 51 See Note
[2025-07-08] MEDS: PANTOPRAZOLE 40 MG TABLET PO (08:08)
[2025-07-08] MEDS: ATORVASTATIN CALCIUM 20 MG TABLET 80 MG PO (08:09)
[2025-07-08] MEDS: LOSARTAN POTASSIUM 25 MG TABLET 50 MG PO (08:09)
[2025-07-08] MEDS: ASPIRIN EC 81 MG TABEC PO (08:09)
[2025-07-08] MEDS: METOPROLOL SUCCINATE XL 25 MG TABCR 100 MG PO (08:10)
--- NOTE | 2025-07-08 10:58 | PC.SS ---
Follow up note: SS provided a list of community resources and left in patient's room. Patient is currently in environmental laboratory technician. SS spoke to patient's nurse and patient's daughter is now here from out of town. Patient will d/c home with home health services for PT/nursing.
[2025-07-08] MEDS: SODIUM CHLORIDE 0.45 % 500 ML 150 ML IV (13:12)
--- NOTE | 2025-07-08 13:51 | PD.RESPRO ---
Documentation for date of: 07/08/25 Subjective Subjective Interval history: No acute events overnight, telemetry was unremarkable. Patient seen and examined at bedside. Vitals and labs reviewed. Patient is saddened by the loss of her , shared some good memories. Patient denies fever, chest pain, shortness of breath Exam Vital Signs Temp Pulse Resp BP Pulse Ox O2 Del Method 97.8 F 83 19 157/76 H 100 Room Air 07/08/25 10:41 07/08/25 10:41 07/08/25 10:41 07/08/25 10:41 07/08/25 10:41 07/08/25 10:41 Narrative Exam GENERAL APPEARANCE: AOx3. NAD, obese, morose, activity normal for age, well developed/ well nourished, no cyanosis, pallor, or diaphoresis. Has a walker/cane and boot for foot off to the side HEENT: Normocephalic atraumatic, no facial trauma, neck is supple. Lids/conjunctiva normal. Mucous membranes moist, nares normal, lips/teeth normal uvula midline without oral pharyngeal erythema, exudate or swelling TMs normal bilaterally. No lymphangitis/lymphedema. [place] on left side of skull from fall (2021) CARDIAC: Regular rate/rhythm, S1+S2 heard. No murmurs, rubs, or gallops noted. No JVD or hepatojugular reflux seen RESPIRATORY: respiratory effort normal, speaks in full sentences, no tripod position, no accessory muscle use. Lungs clear to auscultation without rhonchi, wheezes, rales ABDOMINAL: NBS. Soft, ND/NT. No evidence of fluid wave. No pulsatile masses on exam, rebound tenderness, Cotton sign or pain over Mcburney's point. MUSCLES/EXTREMITIES: No abnormal range of motion, no swelling. Left arm clenched from residual CVA DERM: Warm, pink and dry. No rashes, petechiae or lesions. NEUROLOGICAL: Speech is clear and appropriate. Normal level of consciousness. Chronic Left sided weakness PSYCH: Normal mood and affect. Judgment/competence is appropriate Objective Labs 07/08/25 06:00 07/08/25 06:00 Labs: Laboratory Results - last 24 hr 07/07/25 07/07/25 07/08/25 15:21 22:38 06:00 WBC 10.6 RBC 3.42 L Hgb 10.8 L Hct 33.2 L MCV 97 MCH 31.6 MCHC 32.5 RDW Std Deviation 53.4 H Plt Count 234 Neut % (Auto) 56 Lymph % (Auto) 22 [place] % (Auto) 19 H Eos % (Auto) 1 Baso % (Auto) 0 Neut # (Auto) 6.0 Lymph # (Auto) 2.4 [place] # (Auto) 2.0 H Eos # (Auto) 0.1 Baso # (Auto) 0.0 Immature Gran # (Auto) 0.15 H Absolute Nucleated RBC 0.00 Immature Gran % 1 H Nucleated RBC % 0 PT 11.4 INR 1.0 APTT 34.9 D 122.8 H* D 75.4 H D Sodium 145 Potassium 4.2 Chloride 110 H Carbon Dioxide 22.8 Anion Gap 12 BUN 15 Creatinine 1.2 Estim Creat Clear Calc 52.1 L eGFR 51 L BUN/Creatinine Ratio 13 Glucose 105 Calculated Osmolality 289 Calcium 9.6 Corrected Calcium 9.6 Phosphorus 2.4 Magnesium 1.7 Total Bilirubin 0.5 AST 56 H ALT 31 Alkaline Phosphatase 122 H Total Protein 6.8 Albumin 4.5 Globulin 2.3 Albumin/Globulin Ratio 2.0 Quality Measures Quality Measures VTE prophylaxis Assessment & Plan Assessment Current Active Medications: Generic Name Dose Route Start Last Admin Trade Name Freq PRN Reason Stop Dose Admin Acetaminophen 650 mg 07/06/25 17:29 07/07/25 21:40 Acetaminophen 325 Mg Tablet PO 08/05/25 17:28 650 mg Q6H PRN Administration Fever >101.5 Aspirin 81 mg 07/07/25 09:00 07/08/25 08:09 Aspirin Ec 81 Mg Tabec PO 08/06/25 08:59 81 mg QDAY NAZANIN Administration Atorvastatin Calcium 80 mg 07/06/25 09:00 07/08/25 08:09 Atorvastatin Calcium 20 Mg Tablet PO 08/05/25 08:59 80 mg QDAY NAZANIN Administration Carvedilol 12.5 mg 07/09/25 08:00 Carvedilol 12.5 Mg Tablet PO 08/08/25 07:59 BIDWM NAZANIN Docusate Sodium 100 mg 07/06/25 17:29 Docusate Sod 100 Mg Capsule PO 08/05/25 17:28 QDAY PRN CONSTIPATION Protocol Gabapentin 100 mg 07/07/25 09:15 07/08/25 05:54 Gabapentin 100 Mg Capsule PO 08/06/25 09:14 100 mg TID NAZANIN Administration Sodium Chloride 500 mls @ 150 mls/hr 07/08/25 13:02 Ns 0.45% IV 07/08/25 16:21 .Q3H20M ONE Losartan Potassium 50 mg 07/06/25 19:55 07/08/25 08:09 Losartan Potassium 25 Mg Tablet PO 08/05/25 19:54 50 mg QDAY NAZANIN Administration Melatonin 3 mg 07/07/25 21:00 07/07/25 21:41 Melatonin 3 Mg Tablet PO 08/06/25 20:59 3 mg HS NAZANIN Administration Ondansetron HCl 4 mg 07/06/25 17:29 07/07/25 03:30 Ondansetron Inj 2 Mg/Ml Inj 2 Ml IVP 08/05/25 17:28 4 mg Q6H PRN Administration NAUSEA OR VOMITING Protocol Pantoprazole Sodium 40 mg 07/08/25 09:00 07/08/25 08:08 Pantoprazole 40 Mg Tablet PO 08/07/25 08:59 40 mg QDAY NAZANIN Administration Protocol Plan Aimee Manzano is a 63 year old female with PMHx HTN, hypercholesterolemia, 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 Admitted for nstemi with elevated trops, planning for cardiac catheterization 07/08 (npo midnight). #Chest pain, emotional distress, likely 2/2 Takotsubo cardiomyopathy #Elevated troponin NSTEMI 2 most likely due to relief with medicine and calming most likely due to supply demand mismatch without thrombosis. Takotsubo is favored due to emotional trigger , but less liekly because clinical suspsicion for obstuctive CAD based on past CVA. Patient has uncontrolled hypertension and tachycardia with signs of end organ damage (elevated troponins and creatinine), presenting with acute chest pain following very stressful life event. EKG showed sinus tachycardia. She has risk factors HTN, hypercholesterolemia, and past CVA. WILBERTO score of 3 (>3 CAD risk factors, ASA use past 7 days, and positive cardiac markers). Hgb A1c came back at 5.4. Plan: -Cards consulted -Echo ordered, f/u -Heparin 11.25 units/kg/hr -K+ >4 and Mg >2 at all times. -Metoprolol succinate 100mg PO QD switched to Carvedilol 12.5 mg po bid -Losartan 50mg PO QD -Aspirin 81 mg PO QD -Cardiac Catheter 07/08, f/u results #Hx of CVA w/ Residual L sided weakness #HTN #Hypercholesterolemia -Continued losartan as above -Continued home med Gabapentin 100 mg PO TID -Lipitor 80mg PO QD #Leukocytosis, reactive Most likely reactive in setting of intense stress and demand mismatch ischemia Plan: -continue to f/u cbc #PTSD Consider hydroxyzine or benadryl PRN -started melatonin 3 mg po hs Health Maintenance: Code status: Full DVT prophylaxis: Heparin GI prophylaxis: Zofran, Protonix 40 Diet: Cardiac Benson: No Lines: PIV Supplemental O2: none Disposition: Admitted for NSTEMI work up Patient plan of care was discussed with the attending physician, Dr. Guadarrama & resident physician Dr. Danay Griffith MD PGY-1
[2025-07-08] MEDS: ACETAMINOPHEN 325 MG TABLET 650 MG PO (13:55)
--- NOTE | 2025-07-08 14:56 | ESOP_ITS ---
Cardiac Cath Procedure Procedure Name Date of procedure: 07/08/25 [employer]ES [employer]UT[employer] ASSOCIATE: Christiano Trujillo MD PROCEDURE PERFORMED: 1. Left heart cardiac catheterization- Left and right coronary angiograms with LVEDP measurement and left ventriculogram 2. Ultrasound-guided access of the right radial artery 3. Conscious sedation for 30 minutes.. Procedure Narrative HISTORY AND INDICATIONS: Aimee Manzano is a 64F with reported PMHx of hypertension, hypercholesterolemia, stroke with left-sided deficits, GERD, and UTI who was called in by the ED physician after feeling unwell with chest pain upon getting the news about her 's demise earlier in the day. Patient had elevated troponins which peaked at 6 hrs. Given troponinemia patient was brought in for a cardiac catheterization. Patient was explained the risk benefits and alternatives of performing a left heart cardiac catheterization including the risk of bleeding, heart attack, stroke and in detail and the agreeable for the procedure. Consent signed, placed in the chart and H&P updated. DESCRIPTION OF PROCEDURE: The patient was brought to the cardiac catheterization lab and all asceptic precautions were followed. Patient was given 1 Mg of Versed and 50 mcg of fentanyl for moderate conscious sedation. 2 mL of lidocaine was given in the right wrist. The right radial artery was accessed via the ultrasound guidance as well as micropuncture technique. A 6 Martiniquais glide sheath was introduced. We then used a 5 Martiniquais TIG 4 catheter to perform the left and right coronary angiograms as well as a left ventriculogram which showed the following findings. 1. Left ventricular ejection fraction was normal at 60 to 65% without any regional wall motion abnormalities. LVEDP was normal at 18 mmHg. There was no significant transvalvular aortic gradient. 2. Right dominant circulation 3. Left main artery is a large-caliber vessel with 20-30% stenosis, LM gives rise to LAD, LCX and without any significant disease. 4. LAD is a large sized artery with 20-30% stenosis in the mid segment, gives rise to a medium size diagonal and without show any significant disease. 5. LCx is a large sized artery with 20-30% stenosis of ostial LCx, gives rise to a medium OM1 and small OM2 without any significant disease. 6. RCA is a large artery with 20-30% stenosis of ostial and proximal segment, gives rise to a medium RPDA and RPL without any significant disease. A radial band was used to achieve the hemostasis of the right radial artery access. Patient will be monitored in the cardiac transportation associate for the next 2 to 3 hours and will be discharged home / telemetry later today if hemodynamically stable. Complications: None Specimens: None Blood loss: Estimated 5-10 ml Summary/findings: 1. NSTEMI II: LHC showed mild CAD with 20-30% of mid LAD, ostial LCx, left main, proximal and ostial RCA. Rest of coronaries with only minimal luminal irregularities and no angiographically significant obstruction. 2. LVEF normal at 60-65% and LVEDP normal at 18 mmHg. No significant transvalvular aortic gradient. Recommendations: 1. Recommend aggressive medical treatment and aggressive risk factor modification. Aspirin, statin and Beta geena if BP is permissible. 2. Recommended no lifting more than 5 pounds for next 7-10 days and follow up in my office in 7 days. Christiano Trujillo MD Interventional Cardiology.
--- NOTE | 2025-07-08 16:05 | PC.NURSE ---
1312 patient is awake, alert, breathing unlabored, s/p LHC by Dr. Trujillo, TR band present to right wrist, hematoma noted around TR band, manual pressure applied. fingers pink with good circulation. 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 heparin drip to be stopped, ok to continue aspirin. 1325 Manual pressure removed from right wrist, hematoma resolved, no active bleeding noted. TR band still in place with 14ml air. Hemostasis time 1325 1355 patient has mild headache, tylenol given with pudding and water 1419 Report given to Aliyah BEARDEN, no bleeding or hematoma noted to right wrist 1458 Report received from Aliyah BEARDEN, right wrist remains with no bleeding or hematoma 1530 TR band removed, no bleeding or hematoma noted, site covered with gauze and tegaderm 1605 patient is awake, alert, breathing unlabored, dressing dry with no bleeding or hematoma, telephone report was given to pawan BEARDEN, Bedside report given to Candi BEARDEN on arrival to tele room. Pt has boot and tele box with her.
--- NOTE | 2025-07-08 16:38 | ESDS_ITS ---
<Statement entered by Dennis Jon MD - 07/08/25 17:50> I have reviewed the note and agree with the resident's assessment & plan with exceptions as below. I have personally reviewed labs, imaging, home meds/prior records, examined the patient, formulated and discussed management plan with the IM team. Patient examined at bedside today. Patient had cardiac catheterization performed by Dr. Trujillo. Cardiac Cath Findings 1. NSTEMI II: LHC showed mild CAD with 20-30% of mid LAD, ostial LCx, left main, proximal and ostial RCA. Rest of coronaries with only minimal luminal irregularities and no angiographically significant obstruction. 2. LVEF normal at 60-65% and LVEDP normal at 18 mmHg. No significant transvalvular aortic gradient. Patient to continue with aspirin, high intensity statin and beta-geena upon discharge. Patient to follow-up with cardiology on the outpatient basis. Patient does have diagnosis of mild CAD, however no PCI intervention was performed. Formal echo will be done outpatient, however intraoperative left ventricular ejection fraction seems to be preserved. Patient could have had final diagnosis of NSTEMI type II. Patient was then discharged with the following instructions listed below. Dennis Jon, PGY-2 Internal Medicine Planned Discharge Date 07/08/25 DS: Providers Provider Date of admission: 07/06/25 17:29 Primary care physician: Physician No Primary/Family Admitting Provider: Cristofer Guadarrama MD Attending Provider on Admission: Christiano Trujillo MD Attending Provider on DC: Cristofer Guadarrama MD Discharging Provider: Cristofer Guadarrama MD DS: Diagnosis Problem List Completed Was Problem List Reviewed/Reconciled?: Yes Hospital Course Hospital Course Hospital course: No acute events overnight, telemetry was unremarkable. Patient seen and examined at bedside. Vitals and labs reviewed. Patient is saddened by the loss of her , shared some good memories. 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 In the ED patient was hypertensive 182/89 and tachycardic 130. She initially had a mild leukocytosis that resolved, normocytic anemia, elevated troponins which eventually downtrended. Head CT was unremarkable. Cardiology was consulted for acute coronary syndrome and she was treated with tylenol, metop 100mg, aspirin 81mg, labetalol 10mg, losartan 50mg, morphine 2mg, atorvastatin 80mg. Patient underwent cardiac catheterization which had findings of NSTEMI II: LHC showed mild CAD with 20-30% of mid LAD, ostial LCx, left main, proximal and ostial RCA. Rest of coronaries with only minimal luminal irregularities and no angiographically significant obstruction; LVEF normal at 60-65% and LVEDP normal at 18 mmHg. No significant transvalvular aortic gradient. Cardiology recommended aggressive medical treatment and aggressive risk factor modification. Aspirin, statin and Beta geena if BP is permissible. Also recommended no lifting more than 5 pounds for next 7-10 days and follow up with cardiology in his office in 7 days. Discharge Instructions Follow-up with your PCP within 1 week Follow up with your vulnerability assessment analyst, Dr. Trujillo, within one- two weeks upon D/C. Address: [address] [place] [address], [place] [address]. Phone:? . Call to make an appointment. Continue taking Aspirin as prescribed I am switching your Metoprolol to a similar medicine called Coreg, take as prescribed Continue taking your Lipitor as prescribed Take your medicines as prescribed Return to ED if your symptoms worsen or return Recommended no lifting more than 5 pounds for next 7-10 days and follow up in my office in 7 days. Admission Diagnosis #Chest pain #Elevated troponin #Hx of CVA w/ Residual L sided weakness #HTN #Hypercholesterolemia #Leukocytosis #PTSD Patient plan of care was discussed with the attending physician, Dr. Guadarrama & resident physician Dr. Danay Griffith MD PGY-1 Time Spent with Patient Time attestation: Total time spent providing and/or coordinating discharge services: Time spent: Greater than 30 minutes Home Health Home Health Referral Orders: 07/07/25 14:20 Home Health Referral Routine Reason For Exam: Home PT Home-Bound The patient must either because of illness or injury, need the aid of supportive devices such as crutches, canes, wheelchairs, and walkers; the use of special transportation; or the assistance of another person in order to leave their place of residence; OR have a condition such that leaving his or her home is medically contraindicated. In addition, the patient also meets the following criteria: patient is normally unable to leave the home and leaving home requires considerable taxing effort. Addendum to Home Health Certification Practitioner's Certification: I certify that the patient has been under my care in the hospital and the care of attending physician (see below). We had a [id number] encounter on (see date below). My clinical findings indicate that the patient is home bound per the above criteria and the Home Health Services noted in these orders are medically necessary. The primary reason for the [id number] encounter is related to the fact that the patient requires home health services. Date Certifying [id number] Physician Encounter: 07/06/25 Physician's Name who will Assume Oversight for HH Services: Osmin Quezada DRAPERY EXAMINER - Community Resources: Yes PT to Evaluate: Yes PT to evaluate and provide a treatmnet plan to increase patient's mobility and strength. Wound Care: No IV Therapy: No RN Safety Evaluation: Yes RN to evaluate and create a plan of care that will produce positive outcomes. Palliative Treatment: No Palliative treatment and evaluate the need for hospice. Home Health Aide - Personal Care: Yes Home Health Aide to assist with any ADL's. Exam Vital Signs Temp Pulse Resp BP Pulse Ox O2 Del Method 97 F 81 18 127/80 100 Room Air 07/08/25 13:12 07/08/25 16:00 07/08/25 16:00 07/08/25 16:00 07/08/25 16:07/08/25 16:00 Narrative Exam GENERAL APPEARANCE: AOx3. NAD, obese, morose, activity normal for age, well developed/ well nourished, no cyanosis, pallor, or diaphoresis. Has a walker/ca ne and boot for foot off to the side HEENT: Normocephalic atraumatic, no facial trauma, neck is supple. Lids/conjunctiva normal. Mucous membranes moist, nares normal, lips/teeth normal uvula midline without oral pharyngeal erythema, exudate or swelling TMs normal bilaterally. No lymphangitis/lymphedema. Will on left side of skull from fall (2021) CARDIAC: Regular rate/rhythm, S1+S2 heard. No murmurs, rubs, or gallops noted. No JVD or hepatojugular reflux seen RESPIRATORY: respiratory effort normal, speaks in full sentences, no tripod position, no accessory muscle use. Lungs clear to auscultation without rhonchi, wheezes, rales ABDOMINAL: NBS. Soft, ND/NT. No evidence of fluid wave. No pulsatile masses on exam, rebound tenderness, Cotton sign or pain over Mcburney's point. MUSCLES/EXTREMITIES: No abnormal range of motion, no swelling. Left arm clenched from residual CVA DERM: Warm, pink and dry. No rashes, petechiae or lesions. NEUROLOGICAL: Speech is clear and appropriate. Normal level of consciousness. Chronic Left sided weakness PSYCH: Normal mood and affect. Judgment/competence is appropriate Discharge Plan Plan Patient Disposition: Home w/HOME HEALTH Patient condition on transfer: Stable Care Plan Goals: Discharge instructions Follow-up with your PCP within 1 week Follow up with your vulnerability assessment analyst, Dr. Trujillo, within one- two weeks upon D/C. Address: [address] [place] [address], [place] [address]. Phone:? . Call to make an appointment. Continue taking Aspirin as prescribed I am switching your Metoprolol to a similar medicine called Coreg, take as presc ribed Continue taking your Lipitor as prescribed Take your medicines as prescribed Return to ED if your symptoms worsen or return Recommended no lifting more than 5 pounds for next 7-10 days and follow up in my office in 7 days. Prescriptions/Referrals Prescriptions/Med Rec: New carvedilol 12.5 mg Tablet 12.5 mg PO BIDWM 30 Days Qty: 60 0RF gabapentin 100 mg Capsule 100 mg PO TID PRN (Reason: neuropathic pain) 30 Days Qty: 90 0RF Continued (DME) Blood Pressure Cuff Misc See Rx Instructions .Route Qty: 1 0RF Rx Instructions: As directed ondansetron 4 mg tablet,disintegrating 4 mg PO Q8H PRN (Reason: nausea and vomiting) Qty: 30 5RF atorvastatin 80 mg tablet 80 mg PO QDAY 90 Days Qty: 90 3RF losartan 50 mg tablet 50 mg PO QDAY 30 Days Qty: 30 5RF omeprazole 20 mg tablet,delayed release (DR/EC) 20 mg PO QDAY Changed aspirin 81 mg tablet,delayed release (DR/EC) 81 mg PO QDAY 30 Days Qty: 30 2RF Discontinued gabapentin 100 mg capsule 100 mg PO TID PRN (Reason: nerve pain) Qty: 90 5RF metoprolol succinate 100 mg tablet extended release 24 hr 100 mg PO QDAY 30 Days Qty: 30 5RF Referrals: Christiano Trujillo MD [Physician] - No Primary/Family,Physician [Primary Care Provider] - Patient/Caregiver Discharge Instructions Discharge Activity: activity as tolerated Other Discharge Activity Instructions:: resume gabapentin 100 mg three times a day as needed per Education Materials: CAD, Cardiac Catheterization Dc, Preventing Surgical Site Infections Print Language: Spanish Activity Restrictions/Additional Instructions: Please call to schedule a follow up appointment to be seen by Dr. Trujillo, (Commissioner Of Conciliation), in his office within one week upon discharge. Telephone number: [phone] Please call to schedule a follow up appointment with your primary care doctor 1- 2 weeks after discharge so he/she can make further recommendations about your overall health condition. DO NOT drive or operate any motor vehicle, heavy equipment, or machinery in the next 24 hours. DO NOT perform any activity that requires you to be fully alert in the next 24 hours. DO NOT sign any documentation in the next 24 hours that requires a full understanding of what you are signing for. Do not perform any strenuous physical activity in the next 5 days. Do not bend or twist your wrist for the next 3 days. Do no lift anything that weights equal or over 5 pounds with your right Arm/Hand within the next 3 days. Perform light activity only with your right Hand/Arm for the next 3 days. Do not strain your bowel. If you experience constipation, drink plenty of fluids, especially water, if not contraindicated by your doctor. In addition, add foods rich in fiber. Should you experience constipation, talk to your doctor about other options that might help you alleviate it. Keep your blood pressure under control. If you take blood pressure medication, continue to take it as prescribed, if not contraindicated by your doctor, doing so; helps to prevent post-complications such as bleeding. Take your new/previous medication as directed by the doctor. If there is no changes, continue to take medication at your usual time. After 3 days, start increasing the level of physical activity with your Hand/Arm gradually in the following 5 days. Look out for signs of infection such as tenderness, redness, or drainage to your right wrist. If any, report them to your primary care doctor immediately. You will go home with your right wrist covered by two different dressings, a clear dressing and a Coban wrap. The Coban wrap (Color Dressing on Top) must be removed in 24 hours after it was placed. The clear dressing (Dressing that is attached to your skin) Must be removed in 48 hours after it was placed. If you decide to shower or to take a bath, NOT RECOMMENDED IN THE FIRST 24 HOURS AFTER THE PROCEDURE; please keep dressing clean and dry by covering it. Or, if you prefer, take a sponge bath instead. After removing your dressing, you can gently clean your surgical site with soap and water and pad dry it. DO NOT rub site to prevent complication such as bleeding. DO NOT apply any lotions, creams, or powders on the surgical site until your skin completely heals (5 days or more). Should you experience any type of complications such as pain, change in color, change in temperature, a bruise that increases in size and color, a lump (Hard or soft) that develops and increases in size, numbness, or loss of sensation in your Right arm/Wrist, Chest pain, or shortness of breath; PLEASE GO TO THE NEAREST EMERGENCY ROOM IMMEDIATELY. Should you have any other questions or concerns on regards today?s procedure; feel free to contact us to Drama Director .r Stand Alone Forms: Laura Award Info., Patient Portal Info Letter Discharge Order Discharge Orders: Discharge (Routine); Ordered 07/08/25 Ordered By: Dennis Jon Quality Discharge Quality Measures VTE prophylaxis Attestestation Attestation I reviewed labs, imaging, EKG, home medications and prior available records. Face to face evaluation was performed by me. I have personally examined the patient and discussed assessment and plan with the IM team. I reviewed the resident note and agree with the plan with exceptions as below. Chest pain at rest Elevated troponin Uncontrolled hypertension History of CVA with left-sided weakness Essential hypertension Hyperlipidemia Patient lost her on the day of admission Elevated troponin and BP can be in setting of acute stress Troponin peaked She does have risk factors for ACS Started the patient on aspirin and atorvastatin Consulted cardiology: Status post cardiac catheterization on 07/08 that showed nonobstructive mild CAD Continue losartan and metoprolol Ordered home health Outpatient follow-up with cardiology Time spent is 40 minutes. More than 50% of the time was spent on patient education and coordination of care.
--- NOTE | 2025-07-08 17:36 | PD.RESPRO ---
Documentation for date of: 07/08/25 Subjective Subjective Interval history: 07/07/2025: Patient was seen and examined at bedside. No acute events took place overnight. Patient denies chest pain, pressure, SOB, dizziness, or leg swelling. Patient grieves the loss of her for 40 years and has a teary affect. BP 127/80, HR 81, RR 18, T90 7F, O2 100% on RA. Labs: WBC 10.6, Hgb 10.8 MCV 97 glucose 105, Mg 1.7, and K+ 4.2. Patient is scheduled to perform left heart catheterization today. Background: Aimee Manzano is a 64F with reported PMHx of hypertension, hypercholesterolemia, stroke with left-sided deficits, GERD, and UTI who was called in by the ED physician after feeling unwell with chest pain upon getting the news about her 's demise earlier in the day. She reports high BP with readings as high as 176/90. She takes losartan, metoprolol also for hypertension, and low-dose aspirin. She denies lightheadedness, or dizziness. Pt had a storke while a sleep which left her with left-sided deficits, with a fully contracted left arm, elbow, hand and fingers. She uses a cane and foot brace for mobility at home. Her left ankle is weak and her foot drops, so her foot has propensity to roll while she is on her feet and walking. She uses a boot brace to stablize her left lower leg. She had extreme burning sensation with urination, diagnosed with UTI 1wk ago. The pain has now resolved. No longer does she have her morning chest pain either. Allergies: dust and pollen PMHx: as above PSHx: oral surgeries for lost teeth from smoking. FHx: HTN in both parents. Grandmother from Alzheimer's at 104. SHx: Pt had smoked for some 30y, .25PPD, but has been tobacco free for 10-15y. She does not drink coffee. Pt reports smoking marijuana, the leaves of which she grows. She smokes to help with night's sleep. She reports PTSD since she first had stroke while sleep, and feels very fearful when lying that she would have a second episode. Patient drinks sips of Vodka couple times weekly. ED Course: BP 173/91, pulse 122, Temperature 98.7, pulse 130, respiratory rate 20, blood pressure 182/89, oxygen 98% on room air. Additional labs, WBC 13.4, hemoglobin 11.8, MCV 95 potassium 4.2 carbon dioxide 20.3 BUN 24 creatinine 1.3 glucose 112 initial troponins were elevated at 0.092, which trended up to 0.293 6h later. Patient completed chest x-ray showing mild atelectasis of left lower lobe. Normal heart size. No lobar pneumonia or pulmonary edema. Exam Vital Signs Temp Pulse Resp BP Pulse Ox O2 Del Method 97 F 81 18 127/80 100 Room Air 07/08/25 13:12 07/08/25 16:00 07/08/25 16:00 07/08/25 16:00 07/08/25 16:07/08/25 16:00 Narrative Exam General: Alert and oriented x3, No apparent distress. Skin: Intact, Warm, no rashes. HEENT: Normocephalic, Atraumatic. Normal neck range of motion, Supple. Trachea midline. Respiratory: Lungs are clear to auscultation, Breath sounds are equal bilaterally with equal chest expansion. Cardiovascular: tachycardic, sinus rhythym, normal S1, S2, No murmurs. Distal pulses 2+ Abdomen: Abdomen soft, non-distended, without erythema, or lesions. Normotensive bowel sounds x4. Percussion tympanic. Palpation nontender in all four quadrants. No organomagely. No guarding or rebound present. Musculoskeletal/Extremities: No erythema, swelling, tenderness of any joints. No edema of BLE. DP pulses +2/3 b/l. Full active ROM of all four extremities. Neurologic: NEURO: Oriented x3, cranial nerves II to XII grossly intact. Rt sided hemiplagia with hypercontracted and immobile Right upper extremity, Right foot drop and immobile ankle in a boot. Psych: Thoughts linear and responses appropriate. Objective Labs 07/08/25 06:00 07/08/25 06:00 Labs: Laboratory Results - last 24 hr 07/07/25 07/08/25 22:38 06:00 WBC 10.6 RBC 3.42 L Hgb 10.8 L Hct 33.2 L MCV 97 MCH 31.6 MCHC 32.5 RDW Std Deviation 53.4 H Plt Count 234 Neut % (Auto) 56 Lymph % (Auto) 22 [place] % (Auto) 19 H Eos % (Auto) 1 Baso % (Auto) 0 Neut # (Auto) 6.0 Lymph # (Auto) 2.4 [place] # (Auto) 2.0 H Eos # (Auto) 0.1 Baso # (Auto) 0.0 Immature Gran # (Auto) 0.15 H Absolute Nucleated RBC 0.00 Immature Gran % 1 H Nucleated RBC % 0 PT 11.4 INR 1.0 APTT 122.8 H* D 75.4 H D Sodium 145 Potassium 4.2 Chloride 110 H Carbon Dioxide 22.8 Anion Gap 12 BUN 15 Creatinine 1.2 Estim Creat Clear Calc 52.1 L eGFR 51 L BUN/Creatinine Ratio 13 Glucose 105 Calculated Osmolality 289 Calcium 9.6 Corrected Calcium 9.6 Phosphorus 2.4 Magnesium 1.7 Total Bilirubin 0.5 AST 56 H ALT 31 Alkaline Phosphatase 122 H Total Protein 6.8 Albumin 4.5 Globulin 2.3 Albumin/Globulin Ratio 2.0 Quality Measures Quality Measures VTE prophylaxis Assessment & Plan Assessment Current Active Medications: Generic Name Dose Route Start Last Admin Trade Name Freq PRN Reason Stop Dose Admin Acetaminophen 650 mg 07/06/25 17:29 07/07/25 21:40 Acetaminophen 325 Mg Tablet PO 08/05/25 17:28 650 mg Q6H PRN Administration Fever >101.5 Aspirin 81 mg 07/07/25 09:00 07/08/25 08:09 Aspirin Ec 81 Mg Tabec PO 08/06/25 08:59 81 mg QDAY NAZANIN Administration Atorvastatin Calcium 80 mg 07/06/25 09:00 07/08/25 08:09 Atorvastatin Calcium 20 Mg Tablet PO 08/05/25 08:59 80 mg QDAY NAZANIN Administration Carvedilol 12.5 mg 07/09/25 08:00 Carvedilol 12.5 Mg Tablet PO 08/08/25 07:59 BIDWM NAZANIN Docusate Sodium 100 mg 07/06/25 17:29 Docusate Sod 100 Mg Capsule PO 08/05/25 17:28 QDAY PRN CONSTIPATION Protocol Gabapentin 100 mg 07/07/25 09:15 07/08/25 05:54 Gabapentin 100 Mg Capsule PO 08/06/25 09:14 100 mg TID NAZANIN Administration Losartan Potassium 50 mg 07/06/25 19:55 08/28/25 08:09 Losartan Potassium 25 Mg Tablet PO 08/05/25 19:54 50 mg QDAY NAZANIN Administration Melatonin 3 mg 07/07/25 21:00 07/07/25 21:41 Melatonin 3 Mg Tablet PO 08/06/25 20:59 3 mg HS NAZANIN Administration Ondansetron HCl 4 mg 07/06/25 17:29 07/07/25 03:30 Ondansetron Inj 2 Mg/Ml Inj 2 Ml IVP 08/05/25 17:28 4 mg Q6H PRN Administration NAUSEA OR VOMITING Protocol Pantoprazole Sodium 40 mg 07/08/25 09:00 07/08/25 08:08 Pantoprazole 40 Mg Tablet PO 08/07/25 08:59 40 mg QDAY NAZANIN Administration Protocol Plan Aimee Manzano is a 64F with reported PMHx of hypertension, hypercholesterolemia, stroke with left-sided deficits, GERD, and UTI who was called in by the ED physician after feeling unwell with chest pain upon getting the news about her 's demise earlier in the day. #Chest pain, emotional distress, likely 2/2 Takotsubo cardiomyopathy #Hypertension #Mild CAD according to [facility] #Elevated troponin, resolved #NSTEMI type II, resolved. Patient with no reported MHx of heart disease had developed sudden-onset chest pain upon receiving news about demise of her in the morning. EKG showed sinus tachycardia. initial troponins were elevated at 0.092, which trended up to 0.293 6h later. Troponin peak 0.440, then trended down to 0.393, and 6H later to 0.357. Troponinemia could be related to NSTEMI type ii: Demand/Supply mismatch. Preliminary bedside ultrasound showed good LV contractility. Lipid panel: CH 167, LDL 76, HDL 58, TG 163 Hgb A1c 5.4. ASCVD risk of cardiovascular event in the next 10y is 7.6% Given her elevated troponins pt was scheduled for left heart cardiac catheterization. [facility] 07/08/2025 Summary/findings: 1. NSTEMI II: [facility] showed mild CAD with 20-30% of mid LAD, ostial LCx, left main, proximal and ostial RCA. Rest of coronaries with only minimal luminal irregularities and no angiographically significant obstruction. 2. LVEF normal at 60-65% and LVEDP normal at 18 mmHg. No significant transvalvular aortic gradient. Recommendations: 1. Recommend aggressive medical treatment and aggressive risk factor modification. Aspirin, statin and Beta geena if BP is permissible. 2. Recommended no lifting more than 5 pounds for next 7-10 days and follow up in my office in 7 days. -Heparin drip started with loading dose with 60u/kg (4000u max) followed by drip at 12u/kg/h per ACS guidelines. -Resume high intensity statin, Lipitor 80mg QD, given ASCVD risk >7.5% in the next 10y -Aspirin 81 mg once daily -Recommend keeping K+ >4 and Mg >2 at all times. -Patient on cardiac telemetry #Hypertensive emergency SBP peaked at 183 and HR 130 Evidence of endorgan damage with elevated troponins and chest pain Patient currently on metoprolol PO 100mg QD and losartan 50mg QD Plan: - Consider more aggressive BP reduction: a reduction by about 25% within 2-4h; down to 160/100 post-6h. Consider reducing BP further in the care home (eg, <140/<90 mmHg or <130/<80 mmHg) - Consider switching metoprolol PO 100mg QD to carvedilol PO 12.5mg BID for added BP lowering effect through alpha-adrenergic blockage. #CVA hx w/residual Left hemiplagia ? Resume home aspirin Thank you for cardiology consultation. We appreciate the opportunity to participate in this patient's care. Will continue to follow-up on this patient This case was discussed with my attending physician, Dr. Trujillo, dried yeast supervisor. Raeann Hughes, DO PGY I Attending Provider Attestation/Addendum I have personally seen and examined the patient separately on the above date of service and discussed the plan of care with the resident. I reviewed the resident Dr. Cary consultation progress note and agree with the resident findings and plan in the note above and have also edited the documentation to reflect my findings and plan. Christiano Trujillo M.D. Interventional Cardiology
--- NOTE | 2025-07-09 09:02 | PC.CM ---
Addendum entered by Louis Caal RN 07/09/25 09:26: Patient has been referred to [facility], start of care 07/10/25. Original Note: Home health referral sent out via [employer], pending responses at this time.
== END 2025-07-08 18:40 | disposition home health service (06) | DRG 281 ==
LOC: SERX 16:58 → SERHOLD 17:53 → S2NX 22:09
PROVIDERS: Student in an Organized Health Care Education/Training Program; Admitting Provider Student in an Organized Health Care Education/Training Program; Emergency Provider Emergency Medicine; Visit Provider Internal Medicine Cardiovascular Disease
DX: I16.1 Hypertensive emergency (principal); I69.354 Hemiplegia and hemiparesis following cerebral infarction affecting left non-dominant side; I21.A1 Myocardial infarction type 2; N17.9 Acute kidney failure, unspecified; I10 Essential (primary) hypertension; R79.89 Other specified abnormal findings of blood chemistry; E78.5 Hyperlipidemia, unspecified; F43.10 Post-traumatic stress disorder, unspecified; F12.90 Cannabis use, unspecified, uncomplicated; F17.200 Nicotine dependence, unspecified, uncomplicated; E78.00 Pure hypercholesterolemia, unspecified; I25.10 Atherosclerotic heart disease of native coronary artery without angina pectoris; Z79.82 Long term (current) use of aspirin; Z79.899 Other long term (current) drug therapy
CPT/HCPCS: 36415; 70450; 71045; 80053; 80061; 81001; 83036; 83735; 84100; 84484; 85025; 85610; 85730; 87400; 87811; 93005; 93306; 96374; 96375; 96376; 99152; 99284; A4649; C1887; C1894; J0153; J0168; J0282; J0461; J1643; J1644; J2250; J2270; J2312; J2371; J2405; J2470; J3010; J3475; J3490; J7030; Q9967; A9270; J1920

== ENCOUNTER 2025-07-16 11:01 | Outpatient (AMB) | payer MEDICARE, MEDICAID, SELFPAY ==
[2025-07-16 11:18] VITALS: BP 176/84; PULSE 77; RESP 17; TEMP 36.5; O2SAT 98
--- NOTE | 2025-07-16 11:18 | PD.RESCLINIC ---
Vital Signs 07/16/25 11:18 Weight 88.564 kg Weight Measurement Method Standing Scale BP 176/84 H Blood Pressure Source Automatic Cuff Blood Pressure Location Right Upper Arm Position Sitting Respiration 17 Pulse 77 Pulse Source Monitor Temp 97.7 F Temp Source Oral Pulse Oximetry (%) 98 Oxygen Delivery Method Room Air Allergies/Meds Allergies & Medications Allergies No Known Allergies Allergy (Verified 07/16/25 11:19) Medication Reconciliation miscellaneous medical supply (Blood Pressure Cuff) #1 ea 06/05/23 [Rx Confirmed 07/16/25] atorvastatin 80 mg tablet 80 mg PO QDAY 90 days #90 tabs 01/26/25 [Rx Confirmed 07/16/25] losartan 50 mg tablet 50 mg PO QDAY 1 month #30 tabs 06/17/25 [Rx Confirmed 07/16/25] omeprazole 20 mg tablet,delayed release 20 mg PO QDAY 07/06/25 [History Confirmed 07/16/25] aspirin 81 mg tablet,delayed release 81 mg PO QDAY cva 30 days #30 tabs 07/08/25 [Rx Confirmed 07/16/25] carvedilol 12.5 mg tablet 12.5 mg PO BIDWM 30 days #60 tabs 07/08/25 [Rx Confirmed 07/16/25] gabapentin 100 mg capsule 100 mg PO TID PRN neuropathic pain 30 days #90 caps 07/08/25 [Rx Confirmed 07/16/25] ondansetron 4 mg disintegrating tablet 4 mg PO Q8H PRN nausea and vomiting #30 tabs 07/20/25 [Rx] MA Intake Visit Data Collection New Patient or Established: Established Patient (seen at [facility] within 3 years) Seen by Clinical Staff ONLY (RN/MA): No Pain Present Currently: No Pain scale:: 0 Pain Scale Used: [place]ropeza/Numerical PCP or OBGYN visit in last 3 months: Yes Do You Feel Safe at Home: Yes Smoking Status Smoking Status: Former smoker Immunization / Flu Flu Vaccine in the Last 12 Months: No Flu Vaccine Exclusion Criteria: No Exclusion Criteria Past Medical History Past Medical History NEUROLOGIC: Positive Neurological Disorders and Cerebrovascular Accident (2017 cva); Negative Seizures CARDIAC: Positive Cardiac Disorders, Hypercholesterolemia and Hypertension; Negative Aneurysm or Congestive Heart Failure RESPIRATORY: Negative Chronic Obstructive Pulmonary Disease (COPD) GASTROINTESTINAL: Positive Obesity GENITOURINARY: Negative Genitourinary Disorders, Renal Disease, Kidney Stones, Polycystic Kidney Disease, Neurogenic Bladder, Inguinal Hernia or Dialysis REPRODUCTIVE: Negative Pelvic Inflammatory Disease ENDOCRINE: Negative Diabetes Mellitus Type 1 or Diabetes Mellitus Type 2 HEMATOLOGIC: Negative Blood Disorders PSYCHO/SOCIAL: Positive Anxiety and Post Traumatic Stress Disorder OTHER HISTORY: Negative Autoimmune Disease, Blood Transfusions, Anesthesia Reactions, Organ Transplant, MRSA, VRSA, Vancomycin-Resistant Enterococci, Clostridium Difficile or Cancer Family History FAMILY HISTORY: Positive Family Cardiac Disorders and Family Surgery (Oral Surgery); Negative Family Psychiatric Problems, Family Respiratory Disorders, Family Gastrointestinal Problems, Family Cancer or Family Anesthesia Reaction Surgical History SURGICAL: Negative Thyroidectomy or Organ Transplant Social History SMOKING STATUS: Smoking status: Former smoker PACK YEARS: Pack-Years: 20 SECOND HAND EXPOSURE: second hand exposure: Yes ALCOHOL: Alcohol Intake: Current ALCOHOL FREQUENCY: Alcohol Intake Frequency: A Few Times a Week HOUSING: Housing: House LIVES WITH: Lives With: Spouse Patient Citlaly Jaronjose Social History Living Situation History Housing: House Housing Other:: pt lived with . 07/06/2025 Tobacco History Smoking Status: Former smoker Packs per Day: 1 Pack-Years: 20 Second Hand Smoke Exposure: Yes Alcohol History Alcohol Intake: Current Alcohol Intake Frequency: A Few Times a Week Substance Use History Substance Use: MARIJUANA Domestic Abuse History Do You Feel Safe at Home: Yes Review of Systems Report any current symptoms Only answer those that you have currently: Past Medical History Past Medical History Have you ever been diagnosed with any of the following: Neurological Problems Cerebrovascular Accident (CVA): Yes (2017 cva) Seizures: No Cardiology Problems Hypercholesterolemia: Yes Aneurysm: No Congestive Heart Failure: No Hypertension: Yes Respiratory Problems Chronic Obstructive Pulmonary Disease (COPD): No Stomache/Intestinal Problems Obesity: Yes Genital/Urinary Problems Renal Disease: No Kidney Stones: No Polycystic Kidney Disease: No Neurogenic Bladder: No Inguinal Hernia: No Dialysis: No Reproductive Problems Pelvic Inflammatory Disease: No Endocrine Problems Diabetes Mellitus Type 1: No Diabetes Mellitus Type 2: No Psychologic Problems Anxiety: Yes Post Traumatic Stress Disorder: Yes Other Problems Autoimmune Disease: No Blood Transfusions: No Anesthesia Reactions: No Organ Transplant: No MRSA: No VRSA: No Vancomycin-Resistant Enterococci: No Clostridium Difficile: No Cancer: No Surgical History Thyroidectomy: No History of Present Illness HPI Narrative Aimee Manzano is a pleasant 63-year-old female with a past medical history of hypertension, hypercholesterolemia, and 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 Recently hospitalized from 07/06 to 07/08 for chest pain after her en route to hospital secondary to VT. She was hypertensive and tachycardic in the ED and cardiology was consulted. Eventually underwent cardiac cath that showed mild disease 20 to 30% and mid LAD, ostial left circumflex, left main, proximal and ostial RCA. On discharge, cardiology recommended aggressive medical treatment and aggressive risk factor modification with aspirin, statin, and beta-geena. Today, patient states that she is overall doing well given her circumstances. She has a strong support group with family and friends. Son was in town and daughter to come and visit soon. Future plans to move to [place] with daughter. Otherwise, states she has an appointment with Dr. Trujillo at 1 PM today. Review of Systems Review of Systems Systems Reviewed: All systems reviewed, normal except as documented Objective/Exam Narrative Physical exam: General: AOx3, no acute distress, sitting in motorized chair comfortably HEENT: NC/AT, mucous membranes moist, bilateral sclera anicteric Cardiovascular: regular rate and rhythm, S1/S2 present, no murmurs appreciated Pulmonary: clear to auscultation bilaterally, no rales/rhonchi/wheezes Abdominal: soft, non-tender, non-distended, no rebound/guarding, normal bowel sounds present Musculoskeletal: LUE contracture with flexion at elbow, internal rotation of LLE Skin: warm and dry, intact, no obvious lesions Assessment & Plan Diagnosis / Problem List (1) Hypertension: Status: Chronic Qualifiers: Hypertension type: primary hypertension Qualified Code(s): I10 - Essential (primary) hypertension Plan: ? Metoprolol switched to Coreg 12.5 mg BID, has follow-up appointment with cardiology today ? Losartan 50 mg daily (2) CVA, old, hemiparesis: Status: Chronic Assessment & Plan: Patient states that she has made some success regarding her contractures with home exercises. On gabapentin, taking two per day instead of three due to feeling nauseous, dizzy. Plan: ? Continue gabapentin 100 mg twice a day as needed ? Continue aspirin 81 mg daily ? Continue atorvastatin 80 mg ? Referral for PT sent (3) Mammographic fibroglandular density, bilateral breasts: Status: Acute Assessment & Plan: Last mammogram on 02/08/2021 recommended 1 year follow-up given findings of scattered areas of fibroglandular density and multiple bilateral benign calcifications with BI-RADS Category 2, so will order mammogram. Plan: ? Mammogram ordered 03/10 but unable to be done so reordered 06/04 (4) Stopped smoking with greater than 30 pack year history: Status: Acute Assessment & Plan: Endorses [id number] smoking history and quit approximately 10 years ago but currently uses 0 nicotine vape, so we will order low-dose CT chest for screening. Plan: ? Low-dose CT lung screening ordered 03/10 but unable to be done so reordered 06/04 (5) Colon cancer screening: Status: Acute Assessment & Plan: Patient has not yet had a colonoscopy but agrees to screening. Stool sample sent per patient and will need to find results. Plan: ? Cologuard order placed 03/10, will need to follow-up results Additional Assessment Attending note: I, Juan Hamilton MD, attest that I was physically present for the vazquez portions of the service and evaluated the patient with the resident and I reviewed and discussed the case with the resident and agree with the resident's findings and plans of care as documented above. Juan Hamilton MD Physician Billing Established Patient Established Patient: E/M Level 3-CPT 20537 Office Procedures [facility] Level of Care Nursing/Assessment Patient Status: Established Patient Nursing Assessment/Reassessment: Medication Reconciliation, Update PMH in EMR and Vital Signs Coordination of Care: Complex Care and Chronic Disease 1-5, Complex Care/Chronic Disease 5 or more and Staff clarify orders Established Patient Charge Established Patient Point Assignment: 100 Established Patient Point Charge: Level 3 (80-115)
== END 2025-07-16 11:45 | disposition home or self-care (01) ==
LOC: HODAHC 11:01
PROVIDERS: Supervising Provider Internal Medicine
DX: I10 Essential (primary) hypertension (principal); E78.00 Pure hypercholesterolemia, unspecified; I69.354 Hemiplegia and hemiparesis following cerebral infarction affecting left non-dominant side; Z79.82 Long term (current) use of aspirin; R92.323 Mammographic fibroglandular density, bilateral breasts; Z87.891 Personal history of nicotine dependence
CPT/HCPCS: 99213; G0463